=== PATIENT | female | born 1960 | race African-American/Black ===

== ENCOUNTER 2017-02-10 07:41 | Inpatient (IN) ==
[2017-02-10] MEDS ORDERED: SODIUM CHLORIDE 0.9% 1,000 ML IV STA (08:14)
[2017-02-10] MEDS ORDERED: HYDROmorphone 2 MG/1 ML VIAL IV STA (08:15)
[2017-02-10] MEDS ORDERED: ONDANSETRON 4 MG/2 ML VIAL IV STA (08:15)
--- NOTE | 2017-02-10 08:59 | Emergency Department Note ---
Poonam Zhao Hilary, am scribing for, and in the presence of, Ekaterina Pollard DO 08: 18. IAtul Debra, DO, personally performed the services described in this documentation, ascribed by Marlin Levin in my presence, and it is both accurate and complete [id number] . 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 pt states having some dizziness, pt states she cant keep anything down. pt states she is having weight loss and loss of appitite. pt states she has seen a gi doctor and was told she had a stomach infection and she also states she had to have her esophagus stretched. Mode of Arrival: Wheelchair Limitations: No Limitations Source: Patient, RN Notes Reviewed Time Seen by Provider: 02/10/17 08:00 - History of Present Illness HPI Narrative: Pt is a 56 y/o female presenting to the ED with c/o nausea/vomiting and abdominal pain which onset a month ago. Pt states that she hasn't been sleeping or being able to keep anything down. She confirms weight loss, loss of appetite , abdominal pain, nausea and vomiting. She also states that she has had her esophagus stretched but doesn't recall when. No other complaints or problem stated in the ED. Onset (ago): month(s) Consistency: constant Severity: moderate Severity scale (1-10): 3 Quality: aching Allergies/Adverse Reactions: Allergies Allergy/AdvReac Type Severity Reaction Status Date / Time adhesive Allergy Severe BLISTER Verified 02/10/17 07:52 Penicillins Allergy RASH Verified 02/10/17 07:52 Home Medications: Home Medications Medication Instructions Recorded Confirmed Type HYDROcodone/ACETAMIN 7.5-325 1 tablet PO Q6H #14 tablet 02/06/16 Rx [[place] 7.5-325] Review of System - Review of System 12 point system: reviewed and no additional remarkable complaints except as stated - Review of System Constitutional: Present: weight loss, other (loss of appetite). Absent: fever Gastrointestinal: Present: abdominal pain, nausea, vomiting Medical,Surgical,& Family Hx - Medical History Cardio: History of: Hypertension Psychological: History of: Depression Gastrointestinal: History of: GERD - Social History Smoking Status: Never smoker Frequency of Alcohol Use: None Type of Drug Use: None Exam Vital Signs: Vital Signs Temperature 97.4 F L 02/10/17 08:20 Pulse Rate 94 H 02/10/17 08:20 Respiratory Rate 18 02/10/17 08:20 Blood Pressure 103/88 02/10/17 08:20 O2 Sat by Pulse Oximetry 99 02/10/17 07:45 - General General appearance: alert, in no apparent distress, other (weight loss, dark circles under eyes) - Head Head exam: Present: atraumatic, normocephalic - Eye Eye exam: Present: normal appearance, PERRL, EOMI - ENT ENT exam: Present: mucous membranes dry, TM's normal bilaterally. Absent: mucous membranes moist - Neck Neck exam: Present: full ROM, trachea midline. Absent: tenderness - Chest Chest inspection: Present: symmetric chest wall rise. Absent: tenderness - Respiratory Respiratory exam: Present: normal lung sounds bilaterally. Absent: respiratory distress - Cardiovascular Cardiovascular exam: Present: normal rhythm, tachycardia, normal heart sounds. Absent: murmur, rubs, gallop - Abdominal Exam Abdominal exam: Present: soft, tenderness (diffusely), guarding, normal bowel sounds. Absent: distention - Extremities Exam Extremities exam: Present: full ROM. Absent: tenderness - Back Exam Back exam: Present: full ROM. Absent: tenderness - Neurological Exam Neurological exam: Present: alert, oriented X3, CN II-XII intact. Absent: motor sensory deficit - Psychiatric Psychiatric exam: Present: normal affect, normal mood - Skin Skin exam: Present: warm, dry, intact, normal color, other (tenting of skin). Absent: rash Course Course Narrative: spoke with hospitalist, will admit for observation. with dx of collitis. pt is stable at this time/ Results - Labs CBC & BMP: 02/10/17 08:58 02/10/17 08:58 Lab Results: I have reviewed the patients labs Labs: Laboratory Tests 02/10/17 08:58 WBC 9.3 RBC 3.66 L Hgb 13.1 Hct 36.2 MCH 36 H MCHC 36.2 H Plt Count 233 Lymph % (Auto) 20.7 L D[place] # (Auto) 1.0 H Laboratory Tests 02/10/17 02/10/17 08:58 08:58 Sodium 135 L Potassium 2.8 L Chloride 89 L Carbon Dioxide 30 Anion Gap 18.8 H BUN 10 Calculated Osmolality 268.1 L Total Bilirubin 1.20 H Total Protein 7.9 Globulin 4.3 H Albumin/Globulin Ratio 0.8 L Urine pH 5.0 Ur Specific [place] 1.012 Urine Protein 30 Urine Ketones 20 Urine Blood Small Urine Bilirubin Small H Urine Urobilinogen 4.0 H Urine Leukocytes Small H Urine RBC 2 Urine WBC 47 Hyaline Casts 2 Laboratory Tests 02/10/17 08:58 Urine Opiates Screen Negative Ur Barbiturates Screen Negative Ur Phencyclidine Scrn Negative U Amphetamine/Methamph Negative U Benzodiazepines Scrn Negative U Cocaine Metab Screen Negative U Cannabinoids Screen Negative - Diagnostic Findings Procedure: CT Abdomen and Pelvis: report reviewed by me (Fatty infiltration o fthe liver with cardiac fat pads and minimal atelectasis. Diverticulousis of the colon with possible thickening o fthe wall of the right colon which could be related to colitis, inflammatory bowel disease, artifactual finding etc. Limited evaluation of bowel without oral cotrast. Prior hysterectomy. Chronic appearing L4 compression fracture with degenerative changes. )
[2017-02-10] MEDS ORDERED: HYDROmorphone 2 MG/1 ML VIAL ONE (09:07)
[2017-02-10] MEDS ORDERED: ONDANSETRON 4 MG/2 ML VIAL ONE (09:07)
[2017-02-10 09:08] LABS: Basophils % 0.4 % (0.0-0.8); Eosinophils % 0.2 % (0.00-10.9); Hematocrit 36.2 VOL% (35.7-47.0); Hemoglobin 13.1 GM/DL (12.0-16.0); Immature Granulocytes % 0.4 %; Immature Granulocytes Absolute 0.04 #; Lymphocytes # 1.9 10*3/uL (1.4-4.0); Lymphocytes % 20.7 % (21.3-54.2); Mean Corpuscular HGB Conc 36.2 GM/DL (32-36); Mean Corpuscular Hemoglobin 36 PG (27-34); Mean Corpuscular Volume 98.9 FL (87-102); Mean Platelet Volume 11.4 FL (9.6-12.0); Monocytes % 10.4 % (1.7-12.7); Neutrophils # 6.3 10*3/uL (1.4-7.4); Neutrophils % 67.9 % (38.7-73.9); Platelet Count 233 T/CUMM (130-400); Red Blood Count 3.66 MC/CUMM (3.8-5.5); Red Cell Distribution Width 13.4 % (9.3-17.3); White Blood Count 9.3 T/CUMM (4-12)
[2017-02-10 09:13] LABS: Apearance,Urine CLOUDY (Clear); Bacteria,Urine Many /HPF (Few); Blood, Urine Small mg/dL (Negative); Glucose,Urine (UA) Negative (Negative); Hyaline Casts,Urine 2 /LPF (0-3); Ketones,Urine 20 mg/dL (Negative); Mucus,Urine Few /LPF (Occasional); Nitrite,Urine Negative (Negative); Protein,Urine 30 MG/DL; RBC,Urine 2 /HPF (0-4); Squamous Epithelial Cell,Urine Occasional /HPF (0-10); Urine Specific Gravity 1.012 (1.001-1.035); WBC,Urine 47 /HPF (0-6)
[2017-02-10 09:18] LABS: Bilirubin,Urine Small mg/dL (Negative)
[2017-02-10 09:19] LABS: Urine Color Dark Yellow (Yellow)
[2017-02-10 09:37] LABS: Albumin 3.6 G/DL (3.4-5.0); Bilirubin,Total 1.2 MG/DL (0.2-1.0); Osmolality,Calculated 268.1 MOS/KG (273-304); Potassium 2.8 MMOL/L (3.5-5.1); Total Protein 7.9 G/DL (6.4-8.3)
[2017-02-10 09:53] LABS: Barbiturates Screen,Urine Negative (Negative); Benzodiazepines Screen,Urine Negative (Negative); Cannabinoid Screen,Urine Negative (Negative); Opiate Screen,Urine Negative (Negative); Phencyclidine Screen,Urine Negative (Negative)
[2017-02-10] MEDS ORDERED: POTASSIUM CHLORIDE 20 MEQ TABLET PO STA (10:09)
[2017-02-10] MEDS ORDERED: POTASSIUM CHLORIDE 20 MEQ TABLET PO ONE (10:31)
--- NOTE | 2017-02-10 10:58 | CT Report ---
Referring physician: Ekaterina Pollard DO EXAM: CT abdomen and pelvis with contrast DATE: 02/10/2017 COMPARISON: None REASON: Generalized abdominal pain TECHNIQUE: Axial images of the abdomen and pelvis were obtained after administration of 100 cc of Omnipaque 350 IV contrast. Coronal and sagittal reformatted images were also provided. Total DLP is 799.80 mGy*cm. FINDINGS: Minimal atelectasis at the visualized lung bases with cardiac fat pads. Fatty infiltration of the liver with which is normal in size. No masses, dilated ducts, or calcified gallstones. The spleen, pancreas, adrenal glands, and kidneys have an unremarkable appearance. No definite renal or ureteral calculi are identified. The abdominal aorta is normal in size with no adjacent adenopathy. No significant dilatation of the small bowel. Diverticulosis of the colon with possible thickening of the wall of the right colon. Suboptimal evaluation of the bowel including the appendix with no oral contrast given. Prior hysterectomy with unremarkable urinary bladder. Chronic appearing L4 compression fracture with degenerative changes. IMPRESSION: Fatty infiltration of the liver with cardiac fat pads and minimal atelectasis. Diverticulosis of the colon with possible thickening of the wall of the right colon which could be related to colitis, inflammatory bowel disease, artifactual finding, etc. Limited evaluation of bowel without oral contrast. Prior hysterectomy. Chronic appearing L4 compression fracture with degenerative changes. The CT exam was performed using one or more of the following dose reduction techniques: Automated exposure control and adjustment of the mA and/or kV according to patient size. PROCEDURE INTERPRETED AT [facility] DEPARTMENT OF RADIOLOGY Final Report Signed by: Dr. Alexandrea Fisher
[2017-02-10] MEDS ORDERED: LEVOFLOXACIN INJ 750 MG in PREMIX 1 EACH IV STA (11:19)
[2017-02-10] MEDS ORDERED: MAGNESIUM SULF RIDER 4 GM in PREMIX 1 EACH IV PRN (12:06)
[2017-02-10] MEDS ORDERED: MORPHINE 2 MG/1 ML SYRINGE IV PRN (12:06)
--- NOTE | 2017-02-10 12:16 | Hospitalist History & Physical ---
<Sirisha Ogdenda - Last Filed: 02/10/17 12:10> Assessment and Plan (1) Colitis Status: Acute Assessment and plan: We will start empiric antibiotic coverage, promote bowel rest, gently rehydrate , start protein pump inhibitors, and DVT prophylaxis. We will obtain stool specimens for O&P, WBC, and C. difficile. We will consult gastroenterology to evaluate and assist during the clinical encounter. We will provide supportive care. Current Visit: Yes (2) Hypokalemia Status: Acute Assessment and plan: Potassium noted at 2.9 at the time of encounter; I suspect this is largely due to volume depletion secondary to nausea, vomiting, and diarrhea. We will start the electrolyte protocol, correct deficit, and recheck complete metabolic profile in a.m. Current Visit: Yes History of Present Illness Chief complaint: Nausea, vomiting, diarrhea. History of present illness: This is a very pleasant 56-year-old female that presented to the ED at [facility] this morning for the evaluation of nausea, vomiting, diarrhea. Patient has medical history significant for hypertension, depression , gastroesophageal reflux disease, and dysphasia. Patient has surgical history significant for hysterectomy and esophageal dilation. Patient reported the onset of symptoms 1 month prior to presentation. She reports that the above symptoms started gradually and in increased in frequency in recent weeks. She reports that she has had weight loss and a loss of appetite. She states that she has not been able to "keep anything down" and becomes dizzy when she ambulates. 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 Her symptoms became severe this morning she decided to present to the ED for further evaluation. The patient was seen and assessed at the time of ED presentation. The patient was noted to be vomiting during the triage interview. Labs were obtained; complete blood count reported white blood cell count 9.3, hemoglobin 13.1, hematocrit 36.2, and platelet count of 233. Complete metabolic profile reported sodium at 135, potassium at 2.8, chloride 89, carbon dioxide 30, anion gap 18.8, BUN 18, creatinine 0.90, calcium 10.0, total bilirubin 1.20, AST 27, ALT 16, alkaline phosphatase 71, lipase 100. Urinalysis reported a small amount of bilirubin, urobilinogen 4.0, and a small amount of leukocytes. CT abdomen and pelvis reported fatty infiltration of the liver with cardiac fat pads and minimal atelectasis, diverticulosis of the colon with possible thickening of the wall of the right colon which could be related to colitis or inflammatory bowel disease, and chronic appearing L4 compression fracture with degenerative changes. After brief discussion with both Dr. Pollard and Dr. Gonzalez, patient will be admitted to the hospitalist services for continuation of care. Home medications have been reviewed and reconciled. CODE STATUS discussed; patient is a FULL CODE. We will request a gastroenterology consultation to evaluate and assist during the clinical encounter. Home Medications Medication Instructions Recorded Confirmed Type HYDROcodone/ACETAMIN 7.5-325 1 tablet PO Q6H #14 tablet 02/06/16 Rx [[place] 7.5-325] Allergies Allergy/AdvReac Type Severity Reaction Status Date / Time adhesive Allergy Severe BLISTER Verified 02/10/17 07:52 Penicillins Allergy RASH Verified 02/10/17 07:52 Medical,Surgical,& Family Hx - Medical History Cardio: History of: Hypertension Psychological: History of: Depression Gastrointestinal: History of: GERD - Social History Smoking Status: Never smoker Frequency of Alcohol Use: None Type of Drug Use: None 12 point system: reviewed and no additional remarkable complaints except as stated Exam - Constitutional Vitals: Period Temp Pulse Resp BP Sys/Poon Pulse Ox Last 24 Hr 97.4 F-97.4 F 94-94 18-18 103-103/88-88 99 General appearance: normal weight, no acute distress - Head Head exam: Present: normal inspection, normocephalic, atraumatic - Eye Eye exam: Present: EOMI. Absent: conjunctival injection, nystagmus Pupils: Present: ARIANA, normal accommodation - ENT ENT exam: Present: normal exam, normal external ear exam, normal oropharynx - Neck Neck exam: Present: normal inspection. Absent: lymphadenopathy, meningismus, tenderness, thyromegaly - Respiratory Respiratory exam: Present: clear to auscultation bilaterally. Absent: rales, rhonchi, stridor, wheezes - Cardiovascular Cardiovascular exam: Present: regular rate and rhythm, tachycardia. Absent: carotid bruit, diastolic murmur, gallop, JVD, rubs, systolic murmur - GI/Abdominal GI/Abdominal exam: Present: normal bowel sounds, guarding, tenderness (Diffuse tenderness) - Extremities Exam Extremities exam: Present: normal inspection, normal capillary refill, full ROM. Absent: edema - Back Exam Back exam: Present: normal inspection - Neurological Exam Neurological exam: Present: alert, oriented X3, CN II-XII intact - Psychiatric Psychiatric exam: Present: flat affect - Skin Skin exam: Present: normal color, warm, dry Results - Labs CBC & BMP: 02/10/17 08:58 02/10/17 08:58 Lab Results: I have reviewed the past 24 hour labs <Jeffery Gonzalez - Last Filed: 02/10/17 13:34> Assessment and Plan (1) Nausea and vomiting in adult patient Status: Acute Assessment and plan: Impression: 1. Nausea and vomiting. I reviewed her CT. The findings of possible colitis are very soft, and her symptoms are not at all consistent with colitis. I do not think she has this. She may have cyclic vomiting. 2. Hypokalemia, likely due to vomiting. Plan: Replace potassium. She reports that she has seen numerous gastroenterologists. Once her potassium is replaced, we can probably let her go home. This note was completed using S[employer] voice recognition software. 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 Current Visit: Yes History of Present Illness History of present illness: Ms. Marrufo is a 56 year old female The patient reports a history of GI problems for many years. She describes chronic nausea and vomiting. She reports intermittent dysphagia that has been managed with esophageal dilation. She says that she has seen numerous GI doctors, and has multiple upper and lower endoscopies. She said that she has not had any significant findings on the endoscopic evaluations. She denies any history of pancreas disease or gallbladder disease, and also denies any prior surgery on the abdomen. She reports no lower GI complaints to me. She says that she has lost some weight over the past several months, but cannot quantitate it. Her main complaints are persistent nausea and vomiting, with nocturnal symptoms as well. She reports chronic hypertension, but denies any other medical problems, including diabetes, liver disease, heart disease, or lung problems. She denies any illicit drug use. She did not mention that she was seeing a pain specialist, but there are numerous procedure notes in the chart. Interestingly, her drug screen is negative for everything. Exam - Constitutional Vitals: Period Temp Pulse Resp BP Sys/Poon Pulse Ox Last 24 Hr 97.4 F-97.4 F 94-94 18-18 103-103/88-88 99 Vital signs are as described above. She is afebrile. Heart is regular with no murmur or gallop. Her lungs are clear with no rales or wheezes. Abdomen is soft with some mild generalized tenderness all over. She has good bowel sounds. There is no peripheral edema. She is awake and alert. She says that she has dementia, but is able to give a pretty good history. Results - Labs CBC & BMP: 02/10/17 08:58 02/10/17 08:58 - Diagnostic Findings Procedure: CT Abdomen and Pelvis: image reviewed by me (Reviewed with radiology. Very unimpressive for colitis)
[2017-02-10] MEDS ORDERED: metroNIDAZOLE INJ 500 MG in PREMIX 1 EACH IV SCH (12:30)
[2017-02-10] MEDS ORDERED: SODIUM CHLORIDE 0.9% 1,000 ML IV SCH (12:30)
[2017-02-10] MEDS ORDERED: LEVOFLOXACIN INJ 150 ML IV ONE (13:13)
[2017-02-10] MEDS: SODIUM CHLOR 0.9% KCL 20 MEQ 20 MEQ/1,000 ML BAG IV SCH (14:25)
[2017-02-10] MEDS: MAGNESIUM SULF RIDER 2 GM in PREMIX 1 EACH IV PRN (14:26)
[2017-02-10] MEDS: ONDANSETRON 4 MG/2 ML VIAL IV PRN (14:36)
[2017-02-10] MEDS ORDERED: PROMETHAZINE 25 MG/1 ML VIAL IM PRN (17:07)
[2017-02-11] MEDS: SODIUM CHLOR 0.9% KCL 20 MEQ 20 MEQ/1,000 ML BAG IV SCH ×3 (00:18→20:27)
--- NOTE | 2017-02-11 07:00 | Gastrointestinal Consult Note ---
Assessment and Plan (1) Epigastric pain Status: Acute Assessment and plan: This patient has left upper quadrant epigastric tenderness with a bloating component very suspicious for gastroparesis. There may be peptic ulcer disease erosive gastritis possibly erosive esophagitis. Although the patient has a history of stricturing she has been swallowing adequately post dilation by Dr. Osborne approximately 3-4 months ago. She just simply cannot keep anything down. I am not sure if she is on acid blocking medication on a routine basis but she certainly needs to be. We have increased her Protonix IV to twice a day. She really does not have any diarrhea but does have a single episode of melena. CT scan findings are likely an over read. The prior colonoscopy done approximately a year ago not showing any inflammatory bowel disease. She is not having any bilateral lower quadrant tenderness. We will perform upper endoscopy tomorrow with biopsies to look for the Helicobacter pylori again. We may need to get her completely suppressed with this medications before attempting to treat her with amoxicillin clarithromycin as she did not do well with these medications on last attempted treatment. Current Visit: Yes (2) History of esophageal stricture Status: Acute Assessment and plan: Previously dilated approximately 3-4 months ago, the procedure reports are pending. No need to redilate at this time. Agree with increasing Protonix to 40 mg twice daily. Current Visit: Yes (3) History of melena Status: Acute Assessment and plan: The patient appears to be having coffee-ground emesis in addition to a single episode of melena. I suspect she may have had a Marisol-Campbell tear. Upper endoscopy is pending for tomorrow. Current Visit: Yes (4) Hematemesis with nausea Status: Acute Assessment and plan: As mentioned above. Again I suspect a Marisol-Campbell tear. Upper endoscopy was ordered. The patient knows that she has a chance for the following: Bleeding, infection, perforation, cardiac and pulmonary compromise. Current Visit: Yes History of Present Illness Chief complaint: Nausea, coffee-ground emesis, epigastric pain, melena History of present illness: Ms. Marrufo is a 56 year old female who has been followed over the [facility] and was referred to Dr. Yamil Osborne approximately 1 year ago. She has been following up with him for her routine colonoscopy which demonstrated polyp approximately a year ago patient is also had nausea, vomiting and epigastric pain over the last year but has become much more progressive over the last 1 month. She did undergo a previous upper endoscopy during which time she got a dilation approximately 3-4 months ago but has been experiencing worsening bloating and vomiting sometimes with coffee grounds and a single episode of dark stools approximately 1 week ago. She has not been able to keep anything down over the last several days and presented to our emergency room with contraction alkalosis and a potassium of 2.8. During his endoscopy apparently did find some Helicobacter pylori but the patient vomited the medications she was given to treat this and so never was able to keep them down patient has a long list of home medications that apparently not made into the computer she actually has the bag at her bedside. She states that she does not know if she is on NSAIDs at home. There is no family history of colorectal cancer or polyps that she knows of. She did have some incidental thickening of the right colon which I believe is unrelated and probably an overread by the radiologist as this patient has no typical diarrhea. I have discontinued the stool studies. Again this patient's colonoscopy done by Dr. Osborne approximately 1 year ago was normal aside from a polyp. We will try and get old results from his office. Patient also has extreme bloating and early satiety and just a complete lack of being able to keep any food down her stomach. Home Medications Medication Instructions Recorded Confirmed Type Atomoxetine HCl [Strattera] 80 mg PO DAILY 02/11/17 02/11/17 History Diclofenac 1% Gel [Voltaren 1% Gel] 1 applic TOP QID PRN 02/11/17 02/11/17 History Donepezil HCl 10 mg PO BEDTIME 02/11/17 02/11/17 History Duloxetine HCl [Duloxetine] 60 mg PO BID 02/11/17 02/11/17 History Estradiol Tab [Estrace Tab] 2 mg PO DAILY 02/11/17 02/11/17 History Fluticasone 50 Mcg Nasal [place] 2 spray BOTH NARES DAILY PRN 02/11/17 02/11/17 History [Flonase Nasal [place]] Lisinopril 2.5 mg PO DAILY 02/11/17 02/11/17 History Montelukast Sodium 10 mg PO BEDTIME 02/11/17 02/11/17 History [place]-3/Dha/Epa/Fish Oil [Fish Oil 1 each PO DAILY 02/11/17 02/11/17 History 1,000 mg Softgel] Omeprazole 40 mg PO BID 02/11/17 02/11/17 History Pravastatin Sodium 40 mg PO BEDTIME 02/11/17 02/11/17 History Quetiapine Fumarate 400 mg PO BEDTIME 02/11/17 02/11/17 History Allergies Allergy/AdvReac Type Severity Reaction Status Date / Time adhesive Allergy Severe BLISTER Verified 02/10/17 07:52 Penicillins Allergy RASH Verified 02/10/17 07:52 Medical,Surgical,& Family Hx - Medical History Cardio: History of: Hypertension, Cardiovascular Problems (heart murmur) Psychological: History of: Depression Neurology: History of: Dementia HEENT: History of: HEENT Problems (sinus issues) Genitourinary: History of: Kidney Stones Gastrointestinal: History of: GERD Musculoskeletal: History of: Back/Neck Problems (goes to pain clinic Dr. Witt) Hematology: History of: Anemia - Surgical History Reproductive Surgeries: Surgical HX of;: Hysterectomy - Social History Smoking Status: Never smoker Frequency of Alcohol Use: None Type of Drug Use: None Review of systems: Constitutional: Denies fever, but does have some chills, nausea, and vomiting Eyes: Denies dry eyes, and scleral icterus HENT: Occasion headaches Cardiovascular: Denies acute chest pain and claudication Respiratory: Denies shortness of breath, wheezing, and difficulty breathing, denies cough Gastrointestinal: As noted in the HPI Genitourinary: Denies dysuria and hematuria Neurologic: Denies vision loss, and loss of sensation Musculoskeletal: Admits to joint stiffness, and muscular weakness, but no joint swelling Psychiatric: Occasional depression but no ping symptoms Heme-Lymph: Denies easy bruising, lymph node enlargement or tenderness, night sweats, excessive bleeding Allergies-immunologic: Denies pruritus and rhinorrhea Exam - Constitutional Vitals: Period Temp Pulse Resp BP Sys/Poon Pulse Ox Last 24 Hr 97.1 F-99.1 F 70-94 18-20 103-137/75-97 95-100 General appearance: mild distress - Head Head exam: Present: normocephalic - Eye Eye exam: Present: EOMI - Respiratory Respiratory exam: Present: clear to auscultation bilaterally. Absent: rhonchi, stridor, wheezes - Cardiovascular Cardiovascular exam: Present: regular rate and rhythm - GI/Abdominal GI/Abdominal exam: Present: normal bowel sounds, tenderness (This is noted throughout but especially in the epigastric/left upper quadrant regions), soft, other (Good tone in the rectum with anterior posterior tenderness, stools are guaiac positive, moderately). Absent: guarding, rebound - Extremities Exam Extremities exam: Absent: edema - Neurological Exam Neurological exam: Present: alert, oriented X3 - Psychiatric Psychiatric exam: Present: normal affect, normal mood - Skin Skin exam: Present: warm Results - Labs CBC & BMP: 02/10/17 08:58 02/10/17 08:58
[2017-02-11 08:05] LABS: Basophils % 0.4 % (0.0-0.8); Eosinophils # 0.1 10*3/uL (0.0-0.87); Eosinophils % 1.8 % (0.00-10.9); Hematocrit 32.1 VOL% (35.7-47.0); Hemoglobin 11.2 GM/DL (12.0-16.0); Immature Granulocytes % 0.8 %; Immature Granulocytes Absolute 0.06 #; Lymphocytes % 24.6 % (21.3-54.2); Mean Corpuscular HGB Conc 34.9 GM/DL (32-36); Mean Corpuscular Hemoglobin 35 PG (27-34); Mean Corpuscular Volume 100.3 FL (87-102); Mean Platelet Volume 11.7 FL (9.6-12.0); Monocytes # 0.8 10*3/uL (0.11-0.8); Neutrophils % 62.4 % (38.7-73.9); Platelet Count 198 T/CUMM (130-400); Red Cell Distribution Width 13.5 % (9.3-17.3); White Blood Count 7.9 T/CUMM (4-12)
[2017-02-11] MEDS: PANTOPRAZOLE 40 MG VIAL IV SCH ×2 (08:10→20:27)
[2017-02-11] MEDS: PROMETHAZINE INJ 25 MG in SODIUM CHLORIDE 0.9% 50 ML IV SCH ×3 (08:11→20:27)
[2017-02-11 08:47] LABS: Albumin 2.7 G/DL (3.4-5.0); Calcium 8.8 MG/DL (8.5-10.1); Magnesium 2.1 MG/DL (1.8-2.4); Osmolality,Calculated 275.4 MOS/KG (273-304); Potassium 3.6 MMOL/L (3.5-5.1); Total Protein 6.2 G/DL (6.4-8.3)
[2017-02-11] MEDS ORDERED: PANTOPRAZOLE 40 MG VIAL IV SCH (09:00)
[2017-02-11] MEDS: POTASSIUM CHLORIDE RIDER 10 MEQ in PREMIX 1 EACH IV PRN ×2 (11:29→12:31)
[2017-02-11] MEDS ORDERED: CIPROFLOXACIN INJ 400 MG in PREMIX 1 EACH IV SCH (12:00)
--- NOTE | 2017-02-11 19:23 | Hospitalist Progress Note ---
Assessment and Plan (1) Epigastric pain Status: Acute Assessment and plan: Likely from gastroparesis, patient is going for an EGD Current Visit: Yes (2) Hematemesis with nausea Status: Acute Current Visit: Yes (3) History of esophageal stricture Status: Chronic Assessment and plan: This problem is stable continue PPI Current Visit: Yes (4) History of melena Status: Acute Assessment and plan: stable, was likely from Marisol-Campbell tear Current Visit: Yes Hospitalist: Subjective Interval history: Patient had nausea, vomiting and epigastric pain over the last year but has become much more progressive over the last 1 month. She did undergo a previous upper endoscopy during which time she got an esophageal dilation approximately 3 -4 months ago but has been experiencing worsening bloating and vomiting sometimes with coffee grounds and a single episode of dark stools approximately 1 week ago. Patient also has extreme bloating and early satiety and just a complete lack of being able to keep any food down her stomach. Exam - Constitutional Vitals: Period Temp Pulse Resp BP Sys/Poon Pulse Ox Last 24 Hr 97.0 F-99.1 F 60-76 18-20 119-137/75-86 95-99 General appearance: no acute distress - Head Head exam: Present: normal inspection, normocephalic, atraumatic - Eye Eye exam: Present: EOMI Pupils: Present: ARIANA - ENT ENT exam: Present: normal exam - Neck Neck exam: Present: normal inspection - Respiratory Respiratory exam: Present: clear to auscultation bilaterally - Cardiovascular Cardiovascular exam: Present: regular rate and rhythm - GI/Abdominal GI/Abdominal exam: Present: normal bowel sounds - Extremities Exam Extremities exam: Present: normal inspection, normal capillary refill - Neurological Exam Neurological exam: Present: alert, oriented X3 - Psychiatric Psychiatric exam: Present: normal affect, normal mood - Skin Skin exam: Present: normal color, warm, dry Results - Labs CBC & BMP: 02/11/17 07:19 02/11/17 07:19
[2017-02-12] MEDS: PROMETHAZINE INJ 25 MG in SODIUM CHLORIDE 0.9% 50 ML IV SCH ×4 (03:34→20:35)
[2017-02-12] MEDS: SODIUM CHLOR 0.9% KCL 20 MEQ 20 MEQ/1,000 ML BAG IV SCH ×4 (05:37→22:32)
[2017-02-12] MEDS: PANTOPRAZOLE 40 MG VIAL IV SCH ×3 (09:00→20:35)
--- NOTE | 2017-02-12 09:02 | Gastrointestinal Progress Note ---
Assessment and Plan (1) Epigastric pain Status: Acute Assessment and plan: This patient has left upper quadrant epigastric tenderness with a bloating component very suspicious for gastroparesis. There may be peptic ulcer disease erosive gastritis possibly erosive esophagitis. Although the patient has a history of stricturing she has been swallowing adequately post dilation by Dr. Osborne approximately 3-4 months ago. She just simply cannot keep anything down. I am not sure if she is on acid blocking medication on a routine basis but she certainly needs to be. We have increased her Protonix IV to twice a day. She really does not have any diarrhea but does have a single episode of melena. CT scan findings are likely an over read. The prior colonoscopy done approximately a year ago not showing any inflammatory bowel disease. She is not having any bilateral lower quadrant tenderness. We will perform upper endoscopy tomorrow with biopsies to look for the Helicobacter pylori again. We may need to get her completely suppressed with this medications before attempting to treat her with amoxicillin clarithromycin as she did not do well with these medications on last attempted treatment. 02/12/17--patient has minimal changes in her esophagus and stomach. I did not see a great deal of retained fluid in the stomach or food, we will need to check tomorrow to see if a formalize gastric emptying study shows evidence of gastroparesis. Hold off on treatment with motility agents. Biopsies were taken for Helicobacter pylori as well as celiac sprue. Continue Protonix twice daily and observe on clear liquid diet to see how she does with these. This patient was said to have been previously positive for Helicobacter pylori, no gross erosions or ulcerations were noted in the stomach though. Esophageal biopsies were taken for eosinophilic esophagitis as well. Current Visit: Yes (2) History of esophageal stricture Status: Chronic Assessment and plan: Previously dilated approximately 3-4 months ago, the procedure reports are pending. No need to redilate at this time. Agree with increasing Protonix to 40 mg twice daily. 02/12/17--biopsies for eosinophilic esophagitis obtained. Patient did have a lower esophageal ring which might be associated with this type of condition, she is not having dysphagia now. Current Visit: Yes (3) History of melena Status: Acute Assessment and plan: The patient appears to be having coffee-ground emesis in addition to a single episode of melena. I suspect she may have had a Marisol-Campbell tear. Upper endoscopy is pending for tomorrow. 02/12/17--no gross evidence of a cause for melena seen on today's upper endoscopy. Biopsies are pending. There may been a Marisol-Campbell tear that is since healed up completely. This is my suspicion. Current Visit: Yes (4) Hematemesis with nausea Status: Acute Assessment and plan: As mentioned above. Again I suspect a Marisol-Campbell tear. Upper endoscopy was ordered. The patient knows that she has a chance for the following: Bleeding, infection, perforation, cardiac and pulmonary compromise. 02/12/17--No gross evidence of a Marisol-Campbell tear on endoscopy 02/12/17 as mentioned. Biopsies pending. Current Visit: Yes Gastroenterology - PN: Subj Interval history: No diarrhea, the patient still feels terrible. She is still having nausea but is not having any further vomiting. she is not hungry. Exam (Progress Note) - Constitutional Vitals: Period Temp Pulse Resp BP Sys/Poon Pulse Ox Last 24 Hr 97.0 F-98.7 F 60-70 15-20 117-132/62-93 94-100 General appearance: no acute distress - Head Head exam: Present: normocephalic - Eye Eye exam: Present: EOMI - Respiratory Respiratory exam: Present: clear to auscultation bilaterally - Cardiovascular Cardiovascular exam: Present: regular rate and rhythm - GI/Abdominal GI/Abdominal exam: Present: normal bowel sounds, tenderness (Generalized throughout, worse in the epigastric region.), other. Absent: rebound, soft Results - Labs CBC & BMP: 02/11/17 07:19 02/11/17 07:19
--- NOTE | 2017-02-12 09:15 | Operative Note ---
Date of procedure: 02/12/17 Pre-op diagnosis: Nausea, vomiting, poor p.o. intake, mild anemia Post-op diagnosis: other (Patient does have what appears to be some esophagitis in the distal esophagus, biopsies were taken to rule out eosinophilic esophagitis. There is a 2 cm hiatal hernia and small amount of fluid in the stomach as well as mild nonerosive gastritis. I am not sure if these findings completely explain the patient's nausea and vomiting, we will check a patient for gastroparesis tomorrow morning. Clear liquid diet today as tolerated.) Procedure: PROCEDURE: Esophagogastroduodenoscopy (EGD) with cold biopsy for pathology REFERRING PHYSICIAN: Jeffery Gonzalez MD INDICATIONS: This patient with severe nausea, vomiting, epigastric pain, poor p.o. intake, and weight loss the prior H&P was reviewed and interrim changes are as noted: No change from GI consultation done yesterday ENDOSCOPIST: Wilner Dent MD ENDOSCOPE: Olympus Video 100 System upper endoscope ASA CLASS: 3 EXAM: CV: regular rate and rhythm respiratory: Clear without wheezes abdominal: active bowel sounds MEDICATION: Per nursing anesthesia protocol, see their notes PROCEDURE: After discussion of the potential risks and benefits of upper endoscopy, the informed consent was obtained. The patient was then placed in the left lateral decubitus position where sedation was achieved as noted above. Esophageal intubation was performed without difficulty, and the endoscope was advanced through the esophagus, stomach and duodenum. A slow withdrawal was then performed with retroflexion in the stomach for careful inspection of the incisura angularis, fundus and cardia. The scope was then returned to a neutral position and withdrawn through the esophagus. The patient tolerated the procedure well and without complication. BIOPSIES: Gastric antrum/body and duodenum PHOTOGRAPHS: Obtained FINDINGS: Hypopharynx and Larynx: Normal Esohagoscopy Upper and middle thirds: Normal Lower third moderate erythema times last 3 cm, biopsy to rule out eosinophilic esophagitis, there was a lower esophageal ring noted here as well. Esophogastric junctions: No evidence of stricturing, gross esophagitis although erythema was present, no Hauser's. Gastroscopy: Cardia/Fundus: 2 cm hiatal hernia, small amount of retained fluid in the stomach Body: Mild erythema, biopsied Antrum and pylorus mild erythema, biopsied Duodenoscopy: Bulb normal-appearing, biopsied for sprue Second and third portions: Normal-appearing, biopsied for sprue IMPRESSION: Patient does have what appears to be some esophagitis in the distal esophagus, biopsies were taken to rule out eosinophilic esophagitis. There is a 2 cm hiatal hernia and small amount of fluid in the stomach as well as mild nonerosive gastritis. I am not sure if these findings completely explain the patient's nausea and vomiting, we will check a patient for gastroparesis tomorrow morning. Clear liquid diet today as tolerated. RECOMMENDATIONS: Follow up for biopsy results in 1-2 weeks by phone [phone] Continue anti-gastroesophageal reflux measures (avoid carbonated and acidic beverages, avoid eating within 2 hours of bedtime, avoid tight fitting clothing , and elevate the front bed posts 6 inches prior to sleeping. Wilner Dent MD COPY TO: Jeffery Gonzalez MD Anesthesia: MAC Surgeon / Physician: Wilner Dent Estimated blood loss: minimal Specimens: other (Distal esophagus, gastric antrum/body, duodenum to rule out sprue) Condition: stable Disposition: post procedure unit (G.I. Suite) Results - Labs CBC & BMP: 02/11/17 07:19 02/11/17 07:19 Discharge Plan - Discharge Medications No Action Montelukast Sodium 10 mg PO BEDTIME Lisinopril 2.5 mg PO DAILY Pravastatin Sodium 40 mg PO BEDTIME Donepezil HCl 10 mg PO BEDTIME Atomoxetine HCl [Strattera] 80 mg PO DAILY Omeprazole 40 mg PO BID Fluticasone 50 Mcg Nasal [place] [Flonase Nasal [place]] 2 spray BOTH NARES DAILY PRN PRN Reason: Congestion Diclofenac 1% Gel [Voltaren 1% Gel] 1 applic TOP QID PRN PRN Reason: Pain [place]-3/Dha/Epa/Fish Oil [Fish Oil 1,000 mg Softgel] 1 each PO DAILY Quetiapine Fumarate 400 mg PO BEDTIME Estradiol Tab [Estrace Tab] 2 mg PO DAILY Duloxetine HCl [Duloxetine] 60 mg PO BID - Follow Up or Referral - Forms/Instructions
--- NOTE | 2017-02-12 09:36 | Anesthesia Post-Op ---
Anesthesia Post OP - Post Ansesthetic Evaluation Patient seen in post op: Yes Resp: within normal limits CV: within normal limits Mental: within normal limits Temp: within normal limits [id number]: within normal limits Nausea and Vomiting: other Pain: within normal limits (complain of nausea in RR was given zofran 4mg IV,,)
--- NOTE | 2017-02-12 12:52 | Physician Query Form ---
CLICK EDIT DOCUMENT TO SELECT QUERY ANSWER --> OK --> SIGN Aimee Jose RN Clinical [employer] Operator W) [phone] (f) [phone] [email or web address]: Make your selection(s) from the choices in EACH section by typing an "x" and enter comments in the comment section. Please use your independent medical judgment in providing your response. This request does not imply that any particular answer is desired or expected. CLINICAL INDICATORS: (Providers should not edit this section) Based on documentation of "fever tachycardia and systemic inflammatory disorder ". Pt. admitted with UTI. Iraz=541.9, Kjezg=959, WBC=3.5. Pt. treated with IV Merrem. Please clarify which, if any, of the following is the etiology of the above symptoms and treatment rendered: ( ) Sepsis due to a localized infection, please specify infection: ( ) Severe Sepsis (sepsis with acute organ failure) - Please specify type acute organ failure: ( ) Septic Shock (severe sepsis with hypotension) ( ) SIRS of noninfectious origin ( ) Sepsis due to a device, implant or graft, please specify: ( ) Localized infection only, without systemic illness, please specify infection : ( ) Bacteremia (abnormal lab finding only, does not indicate systemic illness) ( ) Other condition, please specify: ( ) Clinically unable to determine Criteria for Sepsis (SIRS due to an infection) should be based on 2 or more of the following being present: Temperature > 101F or < 96.8F WBC > 12,000 or < 4,000, or > 10% bands Tachycardia HR > 90 beats/minute Tachypnea RR > 20 breaths/minute or PaCO2 > 32mmHg Lactate level > 2.0 mmol/L (>4 is equivalent to severe sepsis) Altered Mental Status Mottling of skin or prolonged capillary refill Non-diabetic hyperglycemia (blood sugar >120 mg/dl) Other evidence of acute organ failure associated with sepsis ( severe sepsis) COMMENTS: PLEASE ALSO DOCUMENT RESPONSE IN PROGRESS NOTES AND/OR DISCHARGE SUMMARY Use of terms such as suspected, likely, or probable (associated with a specific diagnosis that is being evaluated, monitored, or treated as if it exists) are acceptable and can be restated in the discharge summary if not ruled out. MTDD
--- NOTE | 2017-02-12 19:20 | Hospitalist Progress Note ---
Assessment and Plan (1) Epigastric pain Status: Acute Assessment and plan: Likely from gastroparesis, patient is going for an EGD Current Visit: Yes (2) Hematemesis with nausea Status: Acute Current Visit: Yes (3) History of esophageal stricture Status: Chronic Assessment and plan: This problem is stable continue PPI Current Visit: Yes (4) History of melena Status: Acute Assessment and plan: stable, was likely from Marisol-Campbell tear Current Visit: Yes Hospitalist: Subjective Interval history: Patient had nausea, vomiting and epigastric pain over the last year but has become much more progressive over the last 1 month. She did undergo a previous upper endoscopy during which time she got an esophageal dilation approximately 3 -4 months ago but has been experiencing worsening bloating and vomiting sometimes with coffee grounds and a single episode of dark stools approximately 1 week ago. Patient also has extreme bloating and early satiety and just a complete lack of being able to keep any food down her stomach. Patient has mild nausea today but no vomiting. She went for an EGD 02/12. Exam - Constitutional Vitals: Period Temp Pulse Resp BP Sys/Poon Pulse Ox Last 24 Hr 97.3 F-98.7 F 64-94 15-23 117-145/62-93 94-100 Exam: General: [No Acute Distress] HEENT: [Normocephalic, atraumatic, Extra ocular movements intact] Neck: [Supple, No JVD] Chest: [Clear to auscultation B/L] CV: [S1 + S2 audible without murmur, gallop or rub] Abd: [soft, NT, Non-distended, BS +] Ext: [No edema] Skin: [No purpura, bruising or rash] Rheumatologic: [No Joint deformities] Neurologic: [Strengtg 5/5 all extremities, no gross sensory deficits] Results - Labs CBC & BMP: 02/11/17 07:19 02/11/17 07:19 - Impressions Assessment and Plan (1) Epigastric pain Status: Acute Assessment and plan: Likely from gastroparesis, patient is going for an EGD Current Visit: Yes (2) Hematemesis with nausea Status: Acute Current Visit: Yes (3) History of esophageal stricture Status: Chronic Assessment and plan: This problem is stable continue PPI Current Visit: Yes (4) History of melena Status: Acute Assessment and plan: stable, was likely from Marisol-Campbell tear Current Visit: Yes (5) Esophagitis Continue Protonix follow-up biopsy
[2017-02-13 02:52] LABS: Calcium 8.5 MG/DL (8.5-10.1); Osmolality,Calculated 276.3 MOS/KG (273-304); Potassium 3.5 MMOL/L (3.5-5.1)
[2017-02-13] MEDS: PROMETHAZINE INJ 25 MG in SODIUM CHLORIDE 0.9% 50 ML IV SCH (03:12)
--- NOTE | 2017-02-13 08:39 | Gastrointestinal Progress Note ---
Assessment and Plan (1) Epigastric pain Status: Acute Assessment and plan: This patient has left upper quadrant epigastric tenderness with a bloating component very suspicious for gastroparesis. There may be peptic ulcer disease erosive gastritis possibly erosive esophagitis. Although the patient has a history of stricturing she has been swallowing adequately post dilation by Dr. Osborne approximately 3-4 months ago. She just simply cannot keep anything down. I am not sure if she is on acid blocking medication on a routine basis but she certainly needs to be. We have increased her Protonix IV to twice a day. She really does not have any diarrhea but does have a single episode of melena. CT scan findings are likely an over read. The prior colonoscopy done approximately a year ago not showing any inflammatory bowel disease. She is not having any bilateral lower quadrant tenderness. We will perform upper endoscopy tomorrow with biopsies to look for the Helicobacter pylori again. We may need to get her completely suppressed with this medications before attempting to treat her with amoxicillin clarithromycin as she did not do well with these medications on last attempted treatment. 02/12/17--patient has minimal changes in her esophagus and stomach. I did not see a great deal of retained fluid in the stomach or food, we will need to check tomorrow to see if a formalize gastric emptying study shows evidence of gastroparesis. Hold off on treatment with motility agents. Biopsies were taken for Helicobacter pylori as well as celiac sprue. Continue Protonix twice daily and observe on clear liquid diet to see how she does with these. This patient was said to have been previously positive for Helicobacter pylori, no gross erosions or ulcerations were noted in the stomach though. Esophageal biopsies were taken for eosinophilic esophagitis as well. 02/13/17--patient's EGD was performed yesterday and did not show a excessive amount of food or fluid in the stomach. We are checking gastric emptying study see if she has objective evidence of gastroparesis. Biopsies of the stomach are pending. The patient is already on twice daily proton pump inhibitors. We continue to observe. Current Visit: Yes (2) History of esophageal stricture Status: Chronic Assessment and plan: Previously dilated approximately 3-4 months ago, the procedure reports are pending. No need to redilate at this time. Agree with increasing Protonix to 40 mg twice daily. 02/12/17--biopsies for eosinophilic esophagitis obtained. Patient did have a lower esophageal ring which might be associated with this type of condition, she is not having dysphagia now. 02/13/17--no difficulty with swallowing. Biopsies pending for eosinophilic esophagitis as mentioned above. Current Visit: Yes (3) History of melena Status: Acute Assessment and plan: The patient appears to be having coffee-ground emesis in addition to a single episode of melena. I suspect she may have had a Marisol-Campbell tear. Upper endoscopy is pending for tomorrow. 02/12/17--no gross evidence of a cause for melena seen on today's upper endoscopy. Biopsies are pending. There may been a Marisol-Campbell tear that is since healed up completely. This is my suspicion. 02/13/17--no cause for melena seen on upper endoscopy. I believe this patient may have had a Marisol-Campbell that is completely healed at this point. Current Visit: Yes (4) Hematemesis with nausea Status: Acute Assessment and plan: As mentioned above. Again I suspect a Marisol-Campbell tear. Upper endoscopy was ordered. The patient knows that she has a chance for the following: Bleeding, infection, perforation, cardiac and pulmonary compromise. 02/12/17--No gross evidence of a Marisol-Campbell tear on endoscopy 02/12/17 as mentioned. Biopsies pending. 02/13/17--As mentioned above. Current Visit: Yes Gastroenterology - PN: Subj Interval history: The patient is having moderate nausea this morning but has not vomited her gastric emptying study substrate (oatmeal), and we are waiting this test to see whether or not she will show clinical signs of gastroparesis. She really does not have severe gastritis or ulcers or erosions in her stomach. She was not redilated. Biopsies of the stomach are pending at this time. Exam (Progress Note) - Constitutional Vitals: Period Temp Pulse Resp BP Sys/Poon Pulse Ox Last 24 Hr 97.3 F-98.8 F 66-94 16-23 122-145/67-93 78-100 General appearance: no acute distress - Head Head exam: Present: normocephalic - Neck Neck exam: Present: normal inspection - Respiratory Respiratory exam: Present: clear to auscultation bilaterally - GI/Abdominal GI/Abdominal exam: Present: normal bowel sounds, tenderness (Moderate epigastric tenderness to deep palpation), soft. Absent: distended, guarding - Extremities Exam Extremities exam: Absent: edema - Neurological Exam Neurological exam: Present: alert, oriented X3 - Psychiatric Psychiatric exam: Present: normal affect, normal mood - Skin Skin exam: Present: warm Results - Labs CBC & BMP: 02/11/17 07:19 02/13/17 01:48
[2017-02-13] MEDS: PANTOPRAZOLE 40 MG VIAL IV SCH ×2 (09:04→20:00)
[2017-02-13] MEDS: ONDANSETRON 4 MG/2 ML VIAL IV PRN ×2 (09:12→14:04)
[2017-02-13] MEDS: POTASSIUM CHLORIDE RIDER 10 MEQ in PREMIX 1 EACH IV PRN ×3 (09:13→14:07)
--- NOTE | 2017-02-13 12:22 | Pathology Report from [facility] ---
[facility] [place] [id number] PATIENT NAME : Nela Marrufo ORDERING DR : Wilner Dent MD CLINICAL HX: N/V, epigastric pain, dysphasia POST-OP DX: Same SPECIMEN INFO: #1 Duodenal BX #2 SPEEDY #3 Distal esophagus BX GROSS DESCRIPTION: #1 DUODENAL consists of a 0.5 x 0.4 cm aggregate of baez tissue. Submitted in cassette #1.#2 SPEEDY consists of a 0.6 x 0.3 cm aggregate of baez tissue. Submitted in cassette #2.#3 DISTAL ESOPHAGUS consists of a 0.4 x 0.2 cm aggregate of baez tissue. Submitted in cassette #3. DIAGNOSIS FOR NELA MARRUFO: #1 DUODENAL BIOPSY: Chronic non-specific duodenitis with normal villous architecture. No evidence of granulomas, parasite , tumor, or celiac disease.#2 SPEEDY BIOPSIES: Chronic gastritis, focally active. H. pylori not seen on H&E or special stain with appropriate control.#3 DISTAL ESOPHAGUS BIOPSY: Fragmented esophageal squamous mucosa with epithelial hyperplasia with a papilloma. COLLECTED DATE: 02/12/2017 [facility] REPORT DATE: 02/13/2017 ELECTRONICALLY SIGNED BY: Nupur Saucedo M.D. 02/13/2017 - 11:54:12 [facility]
--- NOTE | 2017-02-13 13:18 | Nuclear Medicine Report ---
History is nausea vomiting 500 uCi technetium 99m sulfur colloid in the form of oatmeal given p.o. Only a single image obtained at 108 minutes demonstrating and 93% gastric emptying. Linear fit half-time is 58 minutes Impression: Limited study with grossly normal gastric emptying PROCEDURE INTERPRETED AT [facility] DEPARTMENT OF RADIOLOGY Final Report Signed by: Dr. Salud Shanks
[2017-02-13] MEDS: SODIUM CHLOR 0.9% KCL 20 MEQ 20 MEQ/1,000 ML BAG IV SCH ×2 (14:10→23:13)
--- NOTE | 2017-02-13 20:08 | Hospitalist Progress Note ---
Assessment and Plan (1) Epigastric pain Status: Acute Assessment and plan: Likely from gastroparesis, patient is going for an EGD Current Visit: Yes (2) Hematemesis with nausea Status: Acute Current Visit: Yes (3) History of esophageal stricture Status: Chronic Assessment and plan: This problem is stable continue PPI Current Visit: Yes (4) History of melena Status: Acute Assessment and plan: stable, was likely from Marisol-Campbell tear Current Visit: Yes Hospitalist: Subjective Interval history: Patient had nausea, vomiting and epigastric pain over the last year but has become much more progressive over the last 1 month. She did undergo a previous upper endoscopy during which time she got an esophageal dilation approximately 3 -4 months ago but has been experiencing worsening bloating and vomiting sometimes with coffee grounds and a single episode of dark stools approximately 1 week ago. She has nausea, but no vomiting. Exam - Constitutional Vitals: Period Temp Pulse Resp BP Sys/Poon Pulse Ox Last 24 Hr 97.4 F-98.8 F 69-77 18-20 128-143/67-86 78-100 Exam: General: [No Acute Distress] HEENT: [Normocephalic, atraumatic, Extra ocular movements intact] Neck: [Supple, No JVD] Chest: [Clear to auscultation B/L] CV: [S1 + S2 audible without murmur, gallop or rub] Abd: [soft, NT, Non-distended, BS +] Ext: [No edema] Skin: [No purpura, bruising or rash] Rheumatologic: [No Joint deformities] Neurologic: [Strengtg 5/5 all extremities, no gross sensory deficits] Results - Labs CBC & BMP: 02/11/17 07:19 02/13/17 01:48 - Impressions Assessment and Plan (1) Epigastric pain Status: Acute Assessment and plan: L this is better EGD showed some esophagitis and gastric emptying study is unremarkable. Patient is on scheduled Phenergan for her nausea Current Visit: Yes (2) Hematemesis with nausea Status: Acute Current Visit: Yes (3) History of esophageal stricture Status: Chronic Assessment and plan: This problem is stable continue PPI Current Visit: Yes (4) History of melena Status: Acute Assessment and plan: stable, was likely from Marisol-Campbell tear Current Visit: Yes
[2017-02-14] MEDS: ONDANSETRON 4 MG/2 ML VIAL IV PRN ×3 (07:48→20:43)
[2017-02-14] MEDS: SODIUM CHLOR 0.9% KCL 20 MEQ 20 MEQ/1,000 ML BAG IV SCH ×2 (07:49→16:22)
[2017-02-14] MEDS: PANTOPRAZOLE 40 MG VIAL IV SCH ×2 (08:39→20:43)
--- NOTE | 2017-02-14 13:09 | Gastrointestinal Progress Note ---
Assessment and Plan (1) Epigastric pain Status: Acute Assessment and plan: This patient has left upper quadrant epigastric tenderness with a bloating component very suspicious for gastroparesis. There may be peptic ulcer disease erosive gastritis possibly erosive esophagitis. Although the patient has a history of stricturing she has been swallowing adequately post dilation by Dr. Osborne approximately 3-4 months ago. She just simply cannot keep anything down. I am not sure if she is on acid blocking medication on a routine basis but she certainly needs to be. We have increased her Protonix IV to twice a day. She really does not have any diarrhea but does have a single episode of melena. CT scan findings are likely an over read. The prior colonoscopy done approximately a year ago not showing any inflammatory bowel disease. She is not having any bilateral lower quadrant tenderness. We will perform upper endoscopy tomorrow with biopsies to look for the Helicobacter pylori again. We may need to get her completely suppressed with this medications before attempting to treat her with amoxicillin clarithromycin as she did not do well with these medications on last attempted treatment. 02/12/17--patient has minimal changes in her esophagus and stomach. I did not see a great deal of retained fluid in the stomach or food, we will need to check tomorrow to see if a formalize gastric emptying study shows evidence of gastroparesis. Hold off on treatment with motility agents. Biopsies were taken for Helicobacter pylori as well as celiac sprue. Continue Protonix twice daily and observe on clear liquid diet to see how she does with these. This patient was said to have been previously positive for Helicobacter pylori, no gross erosions or ulcerations were noted in the stomach though. Esophageal biopsies were taken for eosinophilic esophagitis as well. 02/13/17--patient's EGD was performed yesterday and did not show a excessive amount of food or fluid in the stomach. We are checking gastric emptying study see if she has objective evidence of gastroparesis. Biopsies of the stomach are pending. The patient is already on twice daily proton pump inhibitors. We continue to observe. 02/14/17--Patient has about 93% gastric emptying at 1 hour, indicating that she does not have objective evidence of gastroparesis. She has not had any diarrhea since arriving and likely does not have the colitis read on the initial CT scan. What she does appear to have is gram negatives growing out of her urine which may be reflective of urinary tract infection that has systemic symptoms with the patient's nausea and vomiting. She really has minimal findings on upper endoscopy and a normal gastric emptying study. I suspect that she may have nausea and vomiting secondary to UTI. I will go ahead and check her CBC levels tomorrow after starting Cipro 500 mg twice daily today. We could possibly even switch her over to Protonix 40 mg twice daily. Will write a diet for the patient that is more solid--unfortunately there is no bland diet available-- we will write for a BRAT diet instead. Current Visit: Yes (2) History of esophageal stricture Status: Chronic Assessment and plan: Previously dilated approximately 3-4 months ago, the procedure reports are pending. No need to redilate at this time. Agree with increasing Protonix to 40 mg twice daily. 02/12/17--biopsies for eosinophilic esophagitis obtained. Patient did have a lower esophageal ring which might be associated with this type of condition, she is not having dysphagia now. 02/13/17--no difficulty with swallowing. Biopsies pending for eosinophilic esophagitis as mentioned above. 02/14/17--no longer an issue, patient is swallowing adequately. Current Visit: Yes (3) History of melena Status: Acute Assessment and plan: The patient appears to be having coffee-ground emesis in addition to a single episode of melena. I suspect she may have had a Marisol-Campbell tear. Upper endoscopy is pending for tomorrow. 02/12/17--no gross evidence of a cause for melena seen on today's upper endoscopy. Biopsies are pending. There may been a Marisol-Campbell tear that is since healed up completely. This is my suspicion. 02/13/17--no cause for melena seen on upper endoscopy. I believe this patient may have had a Marisol-Campbell that is completely healed at this point. 02/14/17--the patient is noted to have a slightly decreased hematocrit down to 32 %. Current Visit: Yes (4) Hematemesis with nausea Status: Acute Assessment and plan: As mentioned above. Again I suspect a Marisol-Campbell tear. Upper endoscopy was ordered. The patient knows that she has a chance for the following: Bleeding, infection, perforation, cardiac and pulmonary compromise. 02/12/17--No gross evidence of a Marisol-Campbell tear on endoscopy 02/12/17 as mentioned. Biopsies pending. 02/13/17--As mentioned above. 02/14/17--No further evidence of hematemesis. Current Visit: Yes Gastroenterology - PN: Subj Interval history: Nela is able to eat a little bit of her clear liquid diet. She states that she is hungry enough to try to advance to a more bland diet with solids and see if she can tolerate this as well. Her pain is really diffuse and unchanged, but she states that with the Protonix her nausea is down to about a 6 out of 10 in intensity from an original 8 out of 10. She is not having any diarrhea and is going to be difficult to get stool from this patient, part of the reason I did not believe that she had a colitis. Exam (Progress Note) - Constitutional Vitals: Period Temp Pulse Resp BP Sys/Poon Pulse Ox Last 24 Hr 97.0 F-98.4 F 69-85 18-20 112-139/70-97 93-100 - Eye Eye exam: Present: EOMI - Respiratory Respiratory exam: Present: clear to auscultation bilaterally. Absent: rhonchi, stridor, wheezes - Cardiovascular Cardiovascular exam: Present: regular rate and rhythm - GI/Abdominal GI/Abdominal exam: Present: normal bowel sounds, tenderness (Diffusely throughout the abdomen even to moderate palpation), soft. Absent: distended, guarding - Back Exam Back exam: Present: normal inspection - Neurological Exam Neurological exam: Present: alert, oriented X3 - Psychiatric Psychiatric exam: Present: depressed - Skin Skin exam: Present: warm Results - Labs CBC & BMP: 02/11/17 07:19 02/13/17 01:48
[2017-02-14] MEDS: CIPROFLOXACIN INJ 400 MG in PREMIX 1 EACH IV SCH (13:20)
--- NOTE | 2017-02-14 14:50 | Hospitalist Progress Note ---
Assessment and Plan (1) Peritonitis Status: Acute Assessment and plan: Patient has rebound tenderness and diffuse abdominal discomfort. This looks sounds like mesenteritis. An infective colitis is a possibility. This turns out to be Campylobacter treatment of choice will be azithromycin Current Visit: Yes (2) Colitis Status: Acute Assessment and plan: Continue antibiotics Current Visit: Yes (3) Nausea and vomiting in adult patient Status: Acute Current Visit: Yes Hospitalist: Subjective Interval history: Patient has been seen interviewed and examined and chart has been reviewed; admitted to the hospital for nausea vomiting abdominal pain or cramps she is also lost weight. The diarrhea is lately but still of chronic caliber. The abdominal pain has been there for a long time she says. She has had some fever. Exam - Constitutional Vitals: Period Temp Pulse Resp BP Sys/Poon Pulse Ox Last 24 Hr 97.0 F-98.4 F 69-85 18-20 112-139/70-97 93-100 General appearance: normal weight, no acute distress - Head Head exam: Present: normocephalic - Eye Eye exam: Present: EOMI, other (Anicteric sclera no conjunctival petechia) Pupils: Present: ARIANA - ENT ENT exam: Present: normal exam - Neck Neck exam: Present: normal inspection - Respiratory Respiratory exam: Present: clear to auscultation bilaterally - Cardiovascular Cardiovascular exam: Present: regular rate and rhythm - GI/Abdominal GI/Abdominal exam: Present: other (She is tender all over her abdomen and does have rebound tenderness. I do not feel any masses. This was diarrhea and abdominal CT scan suggestive of mesenteritis one would worry about Campylobacter ) - Extremities Exam Extremities exam: Present: full ROM - Neurological Exam Neurological exam: Present: alert, oriented X3, CN II-XII intact, other (Seems to be tangential in her answers however) - Psychiatric Psychiatric exam: Present: normal affect, normal mood - Skin Skin exam: Present: normal color, warm, dry Results - Labs CBC & BMP: 02/11/17 07:19 02/13/17 01:48 Lab Results: I have reviewed the past 24 hour labs (Obtain stool cultures and Campylobacter antigen assessment)
[2017-02-15] MEDS: SODIUM CHLOR 0.9% KCL 20 MEQ 20 MEQ/1,000 ML BAG IV SCH ×3 (00:26→19:39)
[2017-02-15] MEDS: CIPROFLOXACIN INJ 400 MG in PREMIX 1 EACH IV SCH (03:06)
[2017-02-15 04:47] LABS: Basophils % 0.4 % (0.0-0.8); Eosinophils # 0.1 10*3/uL (0.0-0.87); Eosinophils % 1.9 % (0.00-10.9); Hematocrit 28.5 VOL% (35.7-47.0); Hemoglobin 10.1 GM/DL (12.0-16.0); Immature Granulocytes % 0.6 %; Immature Granulocytes Absolute 0.03 #; Lymphocytes # 1.9 10*3/uL (1.4-4.0); Lymphocytes % 36.8 % (21.3-54.2); Mean Corpuscular HGB Conc 35.4 GM/DL (32-36); Mean Corpuscular Hemoglobin 35 PG (27-34); Mean Corpuscular Volume 99.7 FL (87-102); Mean Platelet Volume 11.2 FL (9.6-12.0); Monocytes # 0.6 10*3/uL (0.11-0.8); Monocytes % 12.3 % (1.7-12.7); Neutrophils # 2.5 10*3/uL (1.4-7.4); Platelet Count 174 T/CUMM (130-400); Red Blood Count 2.86 MC/CUMM (3.8-5.5); Red Cell Distribution Width 14.2 % (9.3-17.3); White Blood Count 5.2 T/CUMM (4-12)
--- NOTE | 2017-02-15 09:21 | Gastrointestinal Progress Note ---
Assessment and Plan (1) Epigastric pain Status: Acute Assessment and plan: This patient has left upper quadrant epigastric tenderness with a bloating component very suspicious for gastroparesis. There may be peptic ulcer disease erosive gastritis possibly erosive esophagitis. Although the patient has a history of stricturing she has been swallowing adequately post dilation by Dr. Osborne approximately 3-4 months ago. She just simply cannot keep anything down. I am not sure if she is on acid blocking medication on a routine basis but she certainly needs to be. We have increased her Protonix IV to twice a day. She really does not have any diarrhea but does have a single episode of melena. CT scan findings are likely an over read. The prior colonoscopy done approximately a year ago not showing any inflammatory bowel disease. She is not having any bilateral lower quadrant tenderness. We will perform upper endoscopy tomorrow with biopsies to look for the Helicobacter pylori again. We may need to get her completely suppressed with this medications before attempting to treat her with amoxicillin clarithromycin as she did not do well with these medications on last attempted treatment. 02/12/17--patient has minimal changes in her esophagus and stomach. I did not see a great deal of retained fluid in the stomach or food, we will need to check tomorrow to see if a formalize gastric emptying study shows evidence of gastroparesis. Hold off on treatment with motility agents. Biopsies were taken for Helicobacter pylori as well as celiac sprue. Continue Protonix twice daily and observe on clear liquid diet to see how she does with these. This patient was said to have been previously positive for Helicobacter pylori, no gross erosions or ulcerations were noted in the stomach though. Esophageal biopsies were taken for eosinophilic esophagitis as well. 02/13/17--patient's EGD was performed yesterday and did not show a excessive amount of food or fluid in the stomach. We are checking gastric emptying study see if she has objective evidence of gastroparesis. Biopsies of the stomach are pending. The patient is already on twice daily proton pump inhibitors. We continue to observe. 02/14/17--Patient has about 93% gastric emptying at 1 hour, indicating that she does not have objective evidence of gastroparesis. She has not had any diarrhea since arriving and likely does not have the colitis read on the initial CT scan. What she does appear to have is gram negatives growing out of her urine which may be reflective of urinary tract infection that has systemic symptoms with the patient's nausea and vomiting. She really has minimal findings on upper endoscopy and a normal gastric emptying study. I suspect that she may have nausea and vomiting secondary to UTI. I will go ahead and check her CBC levels tomorrow after starting Cipro 500 mg twice daily today. We could possibly even switch her over to Protonix 40 mg twice daily. Will write a diet for the patient that is more solid--unfortunately there is no bland diet available-- we will write for a BRAT diet instead. 02/15/17--biopsies have come back showing no Helicobacter pylori and the mild chronic duodenitis and gastritis noted in the duodenum/stomach. She appears actually no better after taking the Cipro although her white count has improved slightly. On evaluation of the urine culture the patient does have E. coli that appears resistant to Cipro as well as Septra. Will try the patient on some ceftriaxone as it appears to be sensitive to this. She does have a penicillin allergy but this was not shortness of breath but rather a rash many years ago. Ceftriaxone will have ~15% cross reactivity. She is not tolerating the bland diet and we will back this back to clear liquids. Given the diffuse nature of her pain will check the patient for partial bowel obstruction with a small bowel follow-through tomorrow. N.p.o. after midnight for this in the morning. Current Visit: Yes (2) History of esophageal stricture Status: Chronic Assessment and plan: Previously dilated approximately 3-4 months ago, the procedure reports are pending. No need to redilate at this time. Agree with increasing Protonix to 40 mg twice daily. 02/12/17--biopsies for eosinophilic esophagitis obtained. Patient did have a lower esophageal ring which might be associated with this type of condition, she is not having dysphagia now. 02/13/17--no difficulty with swallowing. Biopsies pending for eosinophilic esophagitis as mentioned above. 02/14/17--no longer an issue, patient is swallowing adequately. 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 Reassurance. Current Visit: Yes (3) History of melena Status: Acute Assessment and plan: The patient appears to be having coffee-ground emesis in addition to a single episode of melena. I suspect she may have had a Marisol-Campbell tear. Upper endoscopy is pending for tomorrow. 02/12/17--no gross evidence of a cause for melena seen on today's upper endoscopy. Biopsies are pending. There may been a Marisol-Campbell tear that is since healed up completely. This is my suspicion. 02/13/17--no cause for melena seen on upper endoscopy. I believe this patient may have had a Marisol-Campbell that is completely healed at this point. 02/14/17--the patient is noted to have a slightly decreased hematocrit down to 32 %. 02/15/17--patient does not have any gross evidence of GI bleeding however the hematocrit is dropped from 36% to 28% now, continue to watch. I do not think that should be able to tolerate a bowel prep even if we want to do a colonoscopy in the near future. She has not yet produced any stool for culture evaluation, we did explain to her again how important it was to obtain this. Current Visit: Yes (4) Hematemesis with nausea Status: Acute Assessment and plan: As mentioned above. Again I suspect a Marisol-Campbell tear. Upper endoscopy was ordered. The patient knows that she has a chance for the following: Bleeding, infection, perforation, cardiac and pulmonary compromise. 02/12/17--No gross evidence of a Marisol-Campbell tear on endoscopy 02/12/17 as mentioned. Biopsies pending. 02/13/17--As mentioned above. 02/14/17--No further evidence of hematemesis. 02/15/17--no further evidence of hematemesis. Current Visit: Yes Gastroenterology - PN: Subj Interval history: This patient continues to have ongoing nausea and vomiting as well as bloating and abdominal pain. The gastric emptying study ordered previously was negative for any evidence of gastroparesis in fact a large amount of her stomach empties in an appropriate time. She continues to thwart attempts to obtain a stool specimen though she is talking about going to the bathroom 5 times per day now ( although when asked about this the story changes frequently). I have explained to her how important it is to try and get stool studies but she states that she cannot separate her urine and her stool appropriately to keep cross- contamination down. The urine is growing out Escherichia coli which unfortunately is resistant to Cipro and Septra. It does appear to be sensitive to ceftriaxone and Ancef. The patient is said to be penicillin allergic but this happened many years ago and resulted in some hives and no shortness of breath. Even though we have a 15% cross reactivity with ceftriaxone I think this is a reasonable choice to see if we can treat a urinary tract infection. She would like to go back on clear liquids and she seemed to tolerate these better than the bland diet. Exam (Progress Note) - Constitutional Vitals: Period Temp Pulse Resp BP Sys/Poon Pulse Ox Last 24 Hr 97.2 F-98.5 F 75-87 18-20 112-151/68-96 94-98 General appearance: no acute distress - Head Head exam: Present: normocephalic - Eye Eye exam: Present: EOMI - Respiratory Respiratory exam: Present: clear to auscultation bilaterally. Absent: rhonchi, stridor, wheezes - Cardiovascular Cardiovascular exam: Present: regular rate and rhythm - GI/Abdominal GI/Abdominal exam: Present: normal bowel sounds, distended, tenderness (Mild/ diffuse), soft. Absent: guarding, rebound - Neurological Exam Neurological exam: Present: alert, oriented X3, CN II-XII intact - Psychiatric Psychiatric exam: Present: depressed, flat affect - Skin Skin exam: Present: warm Results - Labs CBC & BMP: 02/15/17 03:58 02/13/17 01:48
[2017-02-15] MEDS ORDERED: cefTRIAXone 2,000 MG in SODIUM CHLORIDE 0.9% 100 ML IV SCH (09:30)
[2017-02-15] MEDS ORDERED: ACETAMINOPHEN 325 MG TABLET PO PRN (09:31)
[2017-02-15] MEDS: ONDANSETRON 4 MG/2 ML VIAL IV PRN ×3 (09:37→20:44)
[2017-02-15] MEDS: PANTOPRAZOLE 40 MG VIAL IV SCH ×2 (09:38→20:44)
[2017-02-15] MEDS: AZTREONAM 1,000 MG in SODIUM CHLORIDE 0.9% 100 ML IV SCH ×2 (10:43→17:00)
--- NOTE | 2017-02-15 14:10 | Hospitalist Progress Note ---
Assessment and Plan (1) Peritonitis Status: Acute Assessment and plan: Patient has rebound tenderness and diffuse abdominal discomfort. This looks sounds like mesenteritis. An infective colitis is a possibility. This turns out to be Campylobacter treatment of choice will be azithromycin Current Visit: Yes (2) Colitis Status: Acute Assessment and plan: Continue antibiotics and metronidazole 500 mg p.o. every 8 Current Visit: Yes (3) Nausea and vomiting in adult patient Status: Acute Current Visit: Yes (4) UTI (urinary tract infection) Status: Acute Assessment and plan: Repeat UA in the morning. In the meantime switch patient to aztreonam during that the organism was resistant to oral antral gram-negative treatments and she has a penicillin allergy which she is adamant was bothered by it was a long time ago and she cannot explain to me what it was. Patient has a very deliberate demeanor. Recent extension does look withdrawn and quite unhappy. Current Visit: Yes Hospitalist: Subjective Interval history: Patient has been seen interviewed and examined and chart has been reviewed. She is still complaining of abdominal pain she has not had a bowel movement yet. I am interested in assisting the stool for possibility of Campylobacter. Upper GI evaluation revealed only some esophagitis in the distal esophagus biopsies were obtained from this area and are negative for H. pylori.. Findings could not explain the patient's persistent nausea and vomiting. Exam - Constitutional Vitals: Period Temp Pulse Resp BP Sys/Poon Pulse Ox Last 24 Hr 97.2 F-98.5 F 75-87 18-20 112-151/68-96 94-98 General appearance: normal weight, no acute distress - Head Head exam: Present: normocephalic, atraumatic - Eye Eye exam: Present: EOMI Pupils: Present: ARIANA - ENT ENT exam: Present: normal oropharynx - Respiratory Respiratory exam: Present: clear to auscultation bilaterally - Cardiovascular Cardiovascular exam: Present: regular rate and rhythm - GI/Abdominal GI/Abdominal exam: Present: normal bowel sounds, other (Diffuse tenderness does not want me to touch her abdomen) - Extremities Exam Extremities exam: Present: full ROM - Neurological Exam Neurological exam: Present: alert, oriented X3, CN II-XII intact, other - Psychiatric Psychiatric exam: Present: other (Withdrawal mood) - Skin Skin exam: Present: normal color, warm, dry Results - Labs CBC & BMP: 02/15/17 03:58 02/13/17 01:48 Lab Results: I have reviewed the past 24 hour labs
[2017-02-15] MEDS: metroNIDAZOLE 500 MG TABLET PO SCH ×2 (14:36→20:44)
[2017-02-16] MEDS: AZTREONAM 1,000 MG in SODIUM CHLORIDE 0.9% 100 ML IV SCH ×3 (01:22→17:35)
[2017-02-16] MEDS: SODIUM CHLOR 0.9% KCL 20 MEQ 20 MEQ/1,000 ML BAG IV SCH ×4 (04:45→21:15)
--- NOTE | 2017-02-16 11:24 | Hospitalist Progress Note ---
Assessment and Plan (1) Peritonitis Status: Acute Assessment and plan: Patient has rebound tenderness and diffuse abdominal discomfort. This looks sounds like mesenteritis. An infective colitis is a possibility. This turns out to be Campylobacter treatment of choice will be azithromycin Current Visit: Yes (2) Colitis Status: Acute Assessment and plan: Continue antibiotics and metronidazole 500 mg p.o. every 8 Current Visit: Yes (3) Nausea and vomiting in adult patient Status: Acute Current Visit: Yes (4) UTI (urinary tract infection) Status: Acute Assessment and plan: Repeat UA in the morning. In the meantime switch patient to aztreonam during that the organism was resistant to oral antral gram-negative treatments and she has a penicillin allergy which she is adamant was bothered by it was a long time ago and she cannot explain to me what it was. Patient has a very deliberate demeanor. Recent extension does look withdrawn and quite unhappy. Current Visit: Yes (5) Nystagmus Status: Acute Assessment and plan: And has unprovoked rhythmical eye movement with oscillatory pattern no other neurologic finding other than complaint of leg weakness denies a history of multiple sclerosis. Patient will be consulted to neurology. In the preceding days the only thing that I had not noticed was that the patient had quite tangential amount of giving answers. Do not notice any motor defect. Current Visit: Yes Hospitalist: Subjective Interval history: Patient has been seen interviewed and examined and chart has been reviewed. She is still complaining of abdominal pain she has not had a bowel movement yet. I am interested in assisting the stool for possibility of Campylobacter. Upper GI evaluation revealed only some esophagitis in the distal esophagus biopsies were obtained from this area and are negative for H. pylori.. Findings could not explain the patient's persistent nausea and vomiting. Today the patient is for upper GI small bowel follow-through Exam - Constitutional Vitals: Period Temp Pulse Resp BP Sys/Poon Pulse Ox Last 24 Hr 96.9 F-98.5 F 78-90 18-20 113-143/72-99 97-100 General appearance: normal weight - Head Head exam: Present: normocephalic, atraumatic - Eye Eye exam: Present: EOMI, nystagmus, other (Oscillatory nystagmus) Pupils: Present: ARIANA - Respiratory Respiratory exam: Present: clear to auscultation bilaterally - Cardiovascular Cardiovascular exam: Present: regular rate and rhythm - GI/Abdominal GI/Abdominal exam: Present: normal bowel sounds, soft, other (Abdominal discomfort) - Extremities Exam Extremities exam: Present: full ROM - Neurological Exam Neurological exam: Present: alert, oriented X3, CN II-XII intact Results - Labs CBC & BMP: 02/15/17 03:58 02/13/17 01:48 Lab Results: I have reviewed the past 24 hour labs
[2017-02-16] MEDS: metroNIDAZOLE 500 MG TABLET PO SCH ×3 (12:00→21:27)
--- NOTE | 2017-02-16 13:53 | Fluoroscopy Report ---
Small bowel follow-through Indication: Dental pain and bloating Findings: Multiple images were obtained after ingestion of barium. There is normal passage of contrast through the bowel without significant delay. Caliber appears within normal limits. No abnormal filling defects are identified. Mucosal pattern appears within normal limits. Impression: No evidence of abnormality demonstrated. PROCEDURE INTERPRETED AT [facility] DEPARTMENT OF RADIOLOGY Final Report Signed by: Dr. Fahad Banks
--- NOTE | 2017-02-16 16:18 | Gastrointestinal Progress Note ---
Assessment and Plan - Time spent with patient Time spent with patient: Greater than 30 minutes (1) Abnormal eye movements Status: Acute Current Visit: Yes (2) Gastritis and duodenitis Status: Acute Current Visit: Yes (3) Anemia Status: Acute Current Visit: Yes (4) Weight loss, non-intentional Status: Acute Current Visit: Yes (5) Nausea and vomiting in adult patient Status: Acute Assessment and plan: PLEASE NOTE -- automatic citation of patient information is unavoidable in this electronic note. I have made a reasonable effort to review the information cited , but it is not a part of my evaluation, impression, or recommendation unless specifically discussed in the dictated text that follows. As well, voice recognition software was used in the creation of this clinical note. Reasonable effort was made to identify and correct gross errors. Despite proofreading, errors in medical front desk specialist may be present, including nonsense verbiage at times. If you encounter such an error, please contact me at [phone] for discussion and correction. -- Lauren Chief complaint: Initial admission for 1 month of gradual worsening of nausea vomiting and diarrhea, associated with weight loss and loss of appetite. Discovered to have E. coli UTI with severe abdominal pain, nausea and vomiting 24 hour events: Patient patient taken to x-ray for small bowel follow-through this morning Subjective: Ms. Nela Marrufo states that she feels marginally better today, but that worsening of abdominal pain came after recurrent emesis earlier this am, and still has pain diffusely. Upon further review, she states she has had new onset dizziness for 3-6 months, followed y nausea/emesis, and then abdominal pain. She wears glasses, but has never been told she has abnormal eye movements , which I am seeing today. Her mental status also seems depressed, with difficulty recalling details from today and the last few months, which Dr. Dennis concurs. Famhx; states had an aunt and uncle with stomach cancer, she believes, no colon cancer, no autoimmue or IBD States she uses aleve regularly at home, in addition to her prescribed tramadol. Medications: Personally reviewed. Flagyl 500 mg 3 times daily, started February 15, 2017 Aztreonam 1000 mg IV every 8 hours, started February 15, 2017 Protonix 40 mg IV twice daily Not currently getting home medications previously reported, last taken unknown, quetiapine, donepezil, and others REVIEW OF SYSTEMS: Complete other review of systems negative except as noted in the HPI PHYSICAL EXAMINATION: CONSTITUTIONAL: Vital signs reviewed as documented above. In no acute distress. Nontoxic-appearing, but abnormal mentation EYES: Anicteric conjunctiva. Extra-ocular movements are asymmetric, disconjugate , unable to track to periphery, worsens symptoms of nausea with neuro eye exam. Shaking of eyes during certain movements. EARS: Able to hear speech at conversational volume level, no external trauma/ masses. MOUTH: No oral/mouth lesions or ulcers. NECK: No masses or crepitus. Thyroid is of normal size and symmetric. HEART: Regular rate, regular rhythm LUNGS: No increased work of breathing or accessory muscle use. GI/ABDOMEN: obese abdomen, soft, Diffusely tender to mild palpation in all areas, nondistended, no rigidity. No palpable mass. No appreciable hepatosplenomegaly, but limited exam due to pain. SKIN: No rash on face, arms, or hands. No palpable lesions MUSCULOSKELETAL: Normal gait. Muscle tone appears normal without any abnormal movements-except eyes. PSYCH: Normal affect. Alert and oriented to person, place, and time. Neuro: with suppressed mental status, memory problems , slowed speech and response to questions. Eye exam abnormal-see above. Laboratory: Personally reviewed Urine with E. coli, stool culture with gram-negative rods, stool negative for C. difficile. CBC with multiple line decrease including WBC now 5.2, hemoglobin 10.1, MCV 99.7 , platelets 174. Overall improvement electrolytes, slightly high chloride at 109, BUN of 1, creatinine 0.6 Liver associated enzymes are within normal limits, low total protein and albumin , lipase 100 Toxicology was negative Radiology: Personally reviewed reports and images with no pertinent changes unless noted here: Upper GI and small bowel x-ray and follow through done today, images personally reviewed. No gross masses seen. Will wait for formal radiology report. Final radiology report reviewed: Findings: Multiple images were obtained after ingestion of barium. There is normal passage of contrast through the bowel without significant delay. Caliber appears within normal limits. No abnormal filling defects are identified. Mucosal pattern appears within normal limits. Impression: No evidence of abnormality demonstrated. Prior EGD without peptic ulcer disease, negative for H pylori, but mild chronic duodenitis and gastritis in the duodenum and stomach. Gastric emptying study normal with 90% gastric emptying at [address] on admission with possible thickening of the wall of the right colon versus under-distension, without oral contrast, as well as chronic L4 compression fracture with degenerative changes, diverticulosis of the colon. Impressions: #Nausea and vomiting with abdominal pain. Clarified today that patient timeline started with 3-5 months of progressive dizziness, then nausea/vomiting , then abdominal pain, and notes abdominal pain is worsen today immediately after emesis with some MSK component defined. Symptoms may be related to UTI with sepsis, versus small bowel obstruction, versus stomach and small bowel Crohn's disease as evidenced by mild chronic duodenitis and gastritis on EGD, as well as single episode of melena reported. Findings in the right colon on initial CT scan on intake without oral contrast are nonspecific, do not correlate with the location of patient's pain, and colonoscopy 1 year ago without inflammation in this territory noted by primary lens mounter. Infectious gastroenteritis, is also a possibility, but there was a lack of mucosal enhancement on small bowel follow-through. No evidence of gastroparesis. HOWEVER, greatest note on physical exam today was assymetric gaze, inability to track my finger during neuro eye exam, disconjugate gaze, and worsening of dizziness and nausea with maneuver. #Weight loss and loss of appetite #Anemia, borderline macrocytic/normocytic #Chronic gastritis without H. pylori. If B12, folate, or iron deficiency is detected, would recommend antiparietal cell antibody and anti-intrinsic factor antibody to assess for autoimmune gastritis as the cause of this. 2. Other specified counseling -- Patient seen for greater than 30 minutes, with direct doctor communication with Dr. Dennis. Greater than 50% of this time was spent counseling regarding differential diagnosis, likely diagnosis, diagnostic and therapeutic options, risks, benefits, and alternatives to procedures and medications, informed consent, and plan of care generally. Patient has expressed understanding and wishes to proceed. Recommendations: - Consider head imaging with CT to start or more definitive MRI, spoke to Dr. Dennis directly who stated he has already ordered a neurology consult for findings and concern of the same -consider if non-confirmed, but documented, home psychiatric medications need to be restarted - Recommend to obtain blood cultures - evaluate for DIC in the setting of dropping hemoglobin and platelets, although three cell line drop could be dilutional -- vitamin B12 and folate, iron panel and ferritin fasting, to evaluate for nutritional deficiencies that are common in chronic small bowel inflammation, as well as borderline macrocytic/possibly mixed normocytic anemia -additional nutritional deficiencies can be assessed: Vitamin A, E, D, K, zinc, copper (can use spot values for the latter two in this case, or 24 hour urine is most definitive), B1 (thiamine), and B6 (pyridoxine) -ensure blood cultures have been drawn to assess for bacteremia -stop all NSAIDs, patient taking aleve at home which could be the cause of chronic gastritis and duodenitis -continue PPI, can transition to oral BID as soon as tolerating diet, as must be taken on an empty stomach and eat 30-60 min later -I recommend vitamin D 2000 units daily and calcium 800-1200 mg daily while you are on a long-term PPI medication to ensure you are getting adequate intake to help protect against bone loss. -Consider outpatient GI follow-up for repeat EGD in 8-12 weeks to see if duodenitis and gastritis have healed or if further small bowel evaluation is warranted. -Primary team to address L4 compression fracture incidentally noted on CT scan, especially as nerve impingement in this territory can effect abdominal pain symptoms. Current Visit: Yes Exam (Progress Note) - Constitutional Vitals: Period Temp Pulse Resp BP Sys/Poon Pulse Ox Last 24 Hr 97.6 F-98.5 F 78-90 18-20 119-143/76-99 97-99 Results - Labs CBC & BMP: 02/15/17 03:58 02/13/17 01:48
[2017-02-16] MEDS: PANTOPRAZOLE 40 MG VIAL IV SCH ×2 (16:47→21:23)
[2017-02-16] MEDS ORDERED: LORazepam 2 MG/1 ML VIAL IV PRN (16:48)
[2017-02-16] MEDS ORDERED: LORazepam 2 MG/1 ML VIAL ONE (17:33)
[2017-02-16] MEDS: ONDANSETRON 4 MG/2 ML VIAL IV PRN (21:20)
[2017-02-17] MEDS: AZTREONAM 1,000 MG in SODIUM CHLORIDE 0.9% 100 ML IV SCH ×3 (01:40→18:32)
[2017-02-17] MEDS: SODIUM CHLOR 0.9% KCL 20 MEQ 20 MEQ/1,000 ML BAG IV SCH ×4 (02:54→21:08)
[2017-02-17] MEDS: metroNIDAZOLE 500 MG TABLET PO SCH ×3 (09:54→21:08)
[2017-02-17] MEDS: PANTOPRAZOLE 40 MG VIAL IV SCH ×2 (09:55→21:08)
[2017-02-17] MEDS: ONDANSETRON 4 MG/2 ML VIAL IV PRN (09:59)
--- NOTE | 2017-02-17 11:12 | Hospitalist Progress Note ---
Assessment and Plan (1) Peritonitis Status: Acute Assessment and plan: Patient has rebound tenderness and diffuse abdominal discomfort. This looks sounds like mesenteritis. An infective colitis is a possibility. This turns out to be Campylobacter treatment of choice will be azithromycin Stool cultures have isolated gram-negative rods pending identification. Because of this at this point is not clear. Current Visit: Yes (2) Colitis Status: Acute Assessment and plan: Continue antibiotics and metronidazole 500 mg p.o. every 8 Current Visit: Yes (3) Nausea and vomiting in adult patient Status: Acute Current Visit: Yes (4) UTI (urinary tract infection) Status: Acute Assessment and plan: Repeat UA in the morning. Current Visit: Yes (5) Nystagmus Status: Acute Assessment and plan: And has unprovoked rhythmical eye movement with oscillatory pattern no other neurologic finding other than complaint of leg weakness denies a history of multiple sclerosis. Patient will be consulted to neurology. In the preceding days the only thing that I had not noticed was that the patient had quite tangential amount of giving answers. Do not notice any motor defect. Length yesterday from the nurse in charge on the floor that the family member reports that the patient actually does use alcohol overload at home and at times she has had these neurologic and behavioral changes that proceed withdrawal symptoms. I asked the patient today and she did not acknowledge that she says she does not drink that much she does not acknowledge having had any alcohol withdrawal events in the past. She may not be forthcoming therefore continue the benzodiazepines and the skin meantime continue to monitor her cardiac rhythm. Will proceed with neurology consultation and proceed with an MRI. Current Visit: Yes Hospitalist: Subjective Interval history: Patient has been seen interviewed and examined and chart has been reviewed. I questioned her regarding issues of alcohol use she does not acknowledge overuse of alcohol but she is acknowledging drinking alcohol every now and then drinks liquor beer. Family concerned that she may be developing withdrawal was as has been before but she denies any history of alcohol withdrawal. I started her on Ativan yesterday as needed seizures. Her cognitive composure still remains quite tangential. Exam - Constitutional Vitals: Period Temp Pulse Resp BP Sys/Poon Pulse Ox Last 24 Hr 96.4 F-98.7 F 71-97 18-22 110-166/79-104 95-99 General appearance: no acute distress - Head Head exam: Present: normocephalic - Eye Eye exam: Present: EOMI, other (Oscillatory nystagmus with disconjugate gaze) Pupils: Present: ARIANA - Neck Neck exam: Present: normal inspection - Respiratory Respiratory exam: Present: clear to auscultation bilaterally - Cardiovascular Cardiovascular exam: Present: regular rate and rhythm - Extremities Exam Extremities exam: Present: full ROM - Neurological Exam Neurological exam: Present: alert, oriented X3, CN II-XII intact - Psychiatric Psychiatric exam: Present: other (Withdrawal moved) - Skin Skin exam: Present: normal color, warm, dry Results - Labs CBC & BMP: 02/15/17 03:58 02/13/17 01:48 Lab Results: I have reviewed the past 24 hour labs (Repeat chemistries tomorrow an MRI is also been ordered)
--- NOTE | 2017-02-17 13:34 | Neurology Consult Note ---
History of Present Illness History of present illness: 56-year-old right-handed -Luxembourger lady with past medical history significant for hypertension, depression, GERD, that presented to the ED at [facility] for the evaluation of nausea, vomiting, diarrhea. Patient reported the onset of symptoms 1 month prior to presentation. She reports that the above symptoms started gradually and in increased in frequency in recent weeks. She reports that she has had weight loss and a loss of appetite. She states that she has not been able to "keep anything down" and becomes dizzy when she ambulates. Upon examination patient was found to have both horizontal and vertical nystagmus. Patient reported that this is been there for a long time. Apparently family reported that she drinks a lot. However patient denies this information. 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 A CT of the head is unremarkable for any acute pathology. Home Medications Medication Instructions Recorded Confirmed Type Atomoxetine HCl [Strattera] 80 mg PO DAILY 02/11/17 02/11/17 History Diclofenac 1% Gel [Voltaren 1% Gel] 1 applic TOP QID PRN 02/11/17 02/11/17 History Donepezil HCl 10 mg PO BEDTIME 02/11/17 02/11/17 History Duloxetine HCl [Duloxetine] 60 mg PO BID 02/11/17 02/11/17 History Estradiol Tab [Estrace Tab] 2 mg PO DAILY 02/11/17 02/11/17 History Fluticasone 50 Mcg Nasal [place] 2 spray BOTH NARES DAILY PRN 02/11/17 02/11/17 History [Flonase Nasal [place]] Lisinopril 2.5 mg PO DAILY 02/11/17 02/11/17 History Montelukast Sodium 10 mg PO BEDTIME 02/11/17 02/11/17 History Kellogg-3/Dha/Epa/Fish Oil [Fish Oil 1 each PO DAILY 02/11/17 02/11/17 History 1,000 mg Softgel] Omeprazole 40 mg PO BID 02/11/17 02/11/17 History Pravastatin Sodium 40 mg PO BEDTIME 02/11/17 02/11/17 History Quetiapine Fumarate 400 mg PO BEDTIME 02/11/17 02/11/17 History Allergies Allergy/AdvReac Type Severity Reaction Status Date / Time adhesive Allergy Severe BLISTER Verified 02/10/17 07:52 Penicillins Allergy RASH Verified 02/10/17 07:52 12 point system: reviewed and no additional remarkable complaints except as stated Medical,Surgical,& Family Hx - Medical History Cardio: History of: Hypertension, Cardiovascular Problems (heart murmur) Psychological: History of: Depression Neurology: History of: Dementia No history of: Seizures HEENT: History of: HEENT Problems (sinus issues) Genitourinary: History of: Kidney Stones Gastrointestinal: History of: GERD Musculoskeletal: History of: Back/Neck Problems (goes to pain clinic Dr. Witt) Hematology: History of: Anemia - Surgical History Reproductive Surgeries: Surgical HX of;: Hysterectomy - Social History Smoking Status: Never smoker Frequency of Alcohol Use: None Type of Drug Use: None Exam - Constitutional Vitals: Period Temp Pulse Resp BP Sys/Poon Pulse Ox Last 24 Hr 96.4 F-98.7 F 71-97 18-22 110-166/79-104 94-99 Exam: GENERAL: Patient is in no acute distress. NECK: Neck is supple. There is no JVD. No carotid bruits present. No thyroid masses. CVS: First and second heart sounds are normal. There is no S3 present. Regular rate and rhythm. RESPIRATORY: Lungs are clear to auscultation without any rales or rhonchi. ABDOMEN: Soft and non-tender. Bowel sounds are present. There is no hepatosplenomegaly. EXT: There is no palpable edema. Peripheral pulses are present. Skin: No rashes Central Nervous system: General: Alert, awake and Oriented x 3 Speech: Fluent Comprehension: Intact and normal Facial expressions: Normal Cranial Nerves: CN1/Olfactory: Normal CN II/ Optic: Normal, Visual [place] unreliable CN III, and : ARIANA & EOMI, nystagmus to both vertical and horizontal nonsustained CN V: Normal & intact CN VII: face is symmetric CNVIII: Normal CN XI/X/XI/XII: Intact and Normal Motor: Bulk and Tone is normal. Strength in the right 4/5 Strength in the left 4/5 Sensory: Decreased for all the modalities of PP, LT and temp sense Reflexes: 1+ and symmetrical Cerebellar function: Normal finger to nose and heel to sinha testing. Toes: Equivocal Gait: Not tested at this time. Patient got dizzy while she was trying to stand up Results - Labs CBC & BMP: 02/15/17 03:58 02/13/17 01:48 Assessment and Plan (1) Nystagmus Status: Acute Assessment and plan: Differential diagnoses would include alcohol induced, Wernicke's Korsakoff encephalopathy, space-occupying lesion of the brain or local eye problem We will check for vitamin B1 Start thiamine MRI brain with and without contrast Thank you for the consult Current Visit: Yes
--- NOTE | 2017-02-17 14:02 | Gastrointestinal Progress Note ---
Assessment and Plan - Time spent with patient Time spent with patient: Greater than 30 minutes (1) Abnormal eye movements Status: Acute Current Visit: Yes (2) Gastritis and duodenitis Status: Chronic Current Visit: Yes (3) Anemia Status: Acute Current Visit: Yes (4) Weight loss, non-intentional Status: Acute Current Visit: Yes (5) Nausea and vomiting in adult patient Status: Acute Assessment and plan: PLEASE NOTE -- automatic citation of patient information is unavoidable in this electronic note. I have made a reasonable effort to review the information cited , but it is not a part of my evaluation, impression, or recommendation unless specifically discussed in the dictated text that follows. As well, voice recognition software was used in the creation of this clinical note. Reasonable effort was made to identify and correct gross errors. Despite proofreading, errors in hedge fund trader may be present, including nonsense verbiage at times. If you encounter such an error, please contact me at [phone] for discussion and correction. -- Lauren Chief complaint: Initial admission for 1 month of gradual worsening of nausea vomiting and diarrhea, associated with weight loss and loss of appetite. Discovered to have E. coli UTI with severe abdominal pain, nausea and vomiting 24 hour events: noted to have new nystagmus yesterday with altered mentation Subjective: Ms. Nela Marrufo states that abdominal pain is improved, but still constant nausea, worse with movement -patient only reporting 2-4 shots of vodka a couple of days a weeks, for many years, but likely under-reporting. Medications: Personally reviewed. Flagyl 500 mg 3 times daily, started February 15, 2017 Aztreonam 1000 mg IV every 8 hours, started February 15, 2017 Protonix 40 mg IV twice daily Not currently getting home medications previously reported, last taken unknown, quetiapine, donepezil, and others REVIEW OF SYSTEMS: Complete other review of systems negative except as noted in the HPI PHYSICAL EXAMINATION: CONSTITUTIONAL: Vital signs reviewed as documented above. In no acute distress. Nontoxic-appearing, but abnormal mentation EYES: Anicteric conjunctiva. Extra-ocular movements are asymmetric, disconjugate , unable to track to periphery, worsens symptoms of nausea with neuro eye exam. vertical and horizontal nystagmus still present. EARS: Able to hear speech at conversational volume level, no external trauma/ masses. MOUTH: No oral/mouth lesions or ulcers. LUNGS: No increased work of breathing or accessory muscle use. GI/ABDOMEN: Unchanged. obese abdomen, soft, Diffusely tender to mild palpation in all areas, nondistended, no rigidity. No palpable mass. No appreciable hepatosplenomegaly, but limited exam due to pain. SKIN: No rash on face, arms, or hands. No palpable lesions MUSCULOSKELETAL: Normal gait. Muscle tone appears normal without any abnormal movements-except eyes. PSYCH: Normal affect. Alert and oriented to person, place, and time. Neuro: with suppressed mental status, memory problems, speech pattern seems more fluid today. Eye exam abnormal-see above. No tremors, no asterixis. Laboratory: Personally reviewed Urine with E. coli, stool culture with 2 different gram-negative rods, which has not yet been speciated: NEGATIVE FOR PATHOGENIC ORGANISMS stool negative for C. difficile. ESR 75 No NEW LABS from today Radiology: Personally reviewed reports and images with no pertinent changes unless noted here: -CT head: no record this has been done -MRI brain: ordered by primary team -Upper GI and small bowel follow-through There is normal passage of contrast through the bowel without significant delay. Caliber appears within normal limits. No abnormal filling defects are identified. Mucosal pattern appears within normal limits. -Prior EGD without peptic ulcer disease, negative for H pylori, but mild chronic duodenitis and gastritis in the duodenum and stomach. -Gastric emptying study normal with 90% gastric emptying at 1 hour. -CT on admission with possible thickening of the wall of the right colon versus under-distension, without oral contrast, as well as chronic L4 compression fracture with degenerative changes, diverticulosis of the colon. Impressions: #Nausea and vomiting with abdominal pain. Concern for primary neurologic etiology, with possible abdominal pain from significant MSK pain related to emesis and wretching, which has decreased with subsequent improvement in abdominal pain. However, NSAID-induced enteritis and Crohn's disease is still on the differential diagnosis in this patient with mild chronic duodenitis and gastritis on EGD, as well as single episode of melena reported, and possible CT findings in the right colon (likely due to underdistension than inflammation. Normal CSP 1 year ago has not been repeated.) Small bowel follow-through without abnormality, but not the most sensitive imaging study for mucosal inflammation that has not resulted in stricturing or stenosis. Elevated ESR can be seen in any inflammatory condition, such as patient's active infection, neurologic etiology or Crohn's disease. Crohn's cannot be differentiated from NSAID-induced enteropathy in the setting of chronic NSAID use. #Weight loss and loss of appetite: likely secondary to nausea/vomiting, could be related to malabsorption. #Anemia, borderline macrocytic/normocytic #Chronic gastritis without H. pylori. #Other specified counseling -- Patient seen for greater than 30 minutes, with direct doctor communication with Dr. Dennis. Greater than 50% of this time was spent counseling regarding differential diagnosis, likely diagnosis, diagnostic and therapeutic options, risks, benefits, and alternatives to procedures and medications, informed consent, and plan of care generally. Patient has expressed understanding and wishes to proceed. Recommendations: -follow-up MRI brain -consider if home psychiatric medications need to be restarted -follow-up new blood cultures (drawn at least 72 hours after antibiotics started ) -follow-up ordered vitamin B12 and folate, iron panel and ferritin fasting, to evaluate for nutritional deficiencies that are common in chronic small bowel inflammation, as well as borderline macrocytic/possibly mixed normocytic anemia -additional nutritional deficiencies can be assessed: Vitamin A, E, D, K, zinc, copper (can use spot values for the latter two in this case, or 24 hour urine is most definitive), B1 (thiamine), and B6 (pyridoxine) -stop all NSAIDs, patient taking aleve at home which could be the cause of chronic gastritis and duodenitis and mimic Crohn's disease. -continue PPI, can transition to oral BID as soon as tolerating diet, as must be taken on an empty stomach and eat 30-60 min later -If B12, folate, or iron deficiency is detected, would recommend antiparietal cell antibody and anti-intrinsic factor antibody to assess for autoimmune gastritis as the cause of this. -I recommend vitamin D 2000 units daily and calcium 800-1200 mg daily while you are on a long-term PPI medication to ensure you are getting adequate intake to help protect against bone loss. -Consider outpatient GI follow-up for repeat EGD in 8-12 weeks off of NSAIDS, to see if duodenitis and gastritis have healed or if further small bowel evaluation is warranted. -Primary team to address L4 compression fracture incidentally noted on CT scan, especially as nerve impingement in this territory can effect abdominal pain symptoms. Shital Aguilar MD, MPH STAFF SKIDDER Current Visit: Yes Exam (Progress Note) - Constitutional Vitals: Period Temp Pulse Resp BP Sys/Poon Pulse Ox Last 24 Hr 96.4 F-98.7 F 71-97 18-22 110-166/79-104 94-99 Results - Labs CBC & BMP: 02/15/17 03:58 02/13/17 01:48
[2017-02-17] MEDS: THIAMINE 200 MG/2 ML VIAL IV SCH (16:44)
[2017-02-17 20:51] LABS: Apearance,Urine CLEAR (Clear); Bilirubin,Urine Negative (Negative); Blood, Urine Negative (Negative); Glucose,Urine (UA) Negative (Negative); Ketones,Urine Negative (Negative); Mucus,Urine Occasional /LPF (Occasional); Nitrite,Urine Negative (Negative); Protein,Urine Negative; RBC,Urine <1 /HPF (0-4); Urine Color Straw (Yellow); Urine Specific Gravity 1.004 (1.001-1.035); Urine Urobilinogen < 2.0 EU/DL (0.2-1.0); WBC,Urine <1 /HPF (0-6)
[2017-02-18] MEDS: AZTREONAM 1,000 MG in SODIUM CHLORIDE 0.9% 100 ML IV SCH ×2 (01:43→08:55)
[2017-02-18] MEDS: SODIUM CHLOR 0.9% KCL 20 MEQ 20 MEQ/1,000 ML BAG IV SCH ×2 (05:50→17:02)
[2017-02-18 07:24] LABS: Basophils % 0.4 % (0.0-0.8); Eosinophils # 0.1 10*3/uL (0.0-0.87); Hematocrit 27.4 VOL% (35.7-47.0); Hemoglobin 9.8 GM/DL (12.0-16.0); Immature Granulocytes % 0.7 %; Immature Granulocytes Absolute 0.05 #; Lymphocytes # 2.8 10*3/uL (1.4-4.0); Lymphocytes % 36.8 % (21.3-54.2); Mean Corpuscular HGB Conc 35.8 GM/DL (32-36); Mean Corpuscular Hemoglobin 35 PG (27-34); Mean Corpuscular Volume 98.9 FL (87-102); Mean Platelet Volume 11.2 FL (9.6-12.0); Monocytes # 0.9 10*3/uL (0.11-0.8); Monocytes % 11.6 % (1.7-12.7); Neutrophils # 3.8 10*3/uL (1.4-7.4); Neutrophils % 49.5 % (38.7-73.9); Platelet Count 204 T/CUMM (130-400); Red Blood Count 2.77 MC/CUMM (3.8-5.5); Red Cell Distribution Width 14.3 % (9.3-17.3); White Blood Count 7.7 T/CUMM (4-12)
[2017-02-18 08:01] LABS: Albumin 2.6 G/DL (3.4-5.0); Calcium 8.2 MG/DL (8.5-10.1); Magnesium 1.3 MG/DL (1.8-2.4); Potassium 3.7 MMOL/L (3.5-5.1); Total Protein 5.7 G/DL (6.4-8.3)
--- NOTE | 2017-02-18 08:40 | Gastrointestinal Progress Note ---
Assessment and Plan (1) Epigastric pain Status: Acute Assessment and plan: This patient has left upper quadrant epigastric tenderness with a bloating component very suspicious for gastroparesis. There may be peptic ulcer disease erosive gastritis possibly erosive esophagitis. Although the patient has a history of stricturing she has been swallowing adequately post dilation by Dr. Osborne approximately 3-4 months ago. She just simply cannot keep anything down. I am not sure if she is on acid blocking medication on a routine basis but she certainly needs to be. We have increased her Protonix IV to twice a day. She really does not have any diarrhea but does have a single episode of melena. CT scan findings are likely an over read. The prior colonoscopy done approximately a year ago not showing any inflammatory bowel disease. She is not having any bilateral lower quadrant tenderness. We will perform upper endoscopy tomorrow with biopsies to look for the Helicobacter pylori again. We may need to get her completely suppressed with this medications before attempting to treat her with amoxicillin clarithromycin as she did not do well with these medications on last attempted treatment. 02/12/17--patient has minimal changes in her esophagus and stomach. I did not see a great deal of retained fluid in the stomach or food, we will need to check tomorrow to see if a formalize gastric emptying study shows evidence of gastroparesis. Hold off on treatment with motility agents. Biopsies were taken for Helicobacter pylori as well as celiac sprue. Continue Protonix twice daily and observe on clear liquid diet to see how she does with these. This patient was said to have been previously positive for Helicobacter pylori, no gross erosions or ulcerations were noted in the stomach though. Esophageal biopsies were taken for eosinophilic esophagitis as well. 02/13/17--patient's EGD was performed yesterday and did not show a excessive amount of food or fluid in the stomach. We are checking gastric emptying study see if she has objective evidence of gastroparesis. Biopsies of the stomach are pending. The patient is already on twice daily proton pump inhibitors. We continue to observe. 02/14/17--Patient has about 93% gastric emptying at 1 hour, indicating that she does not have objective evidence of gastroparesis. She has not had any diarrhea since arriving and likely does not have the colitis read on the initial CT scan. What she does appear to have is gram negatives growing out of her urine which may be reflective of urinary tract infection that has systemic symptoms with the patient's nausea and vomiting. She really has minimal findings on upper endoscopy and a normal gastric emptying study. I suspect that she may have nausea and vomiting secondary to UTI. I will go ahead and check her CBC levels tomorrow after starting Cipro 500 mg twice daily today. We could possibly even switch her over to Protonix 40 mg twice daily. Will write a diet for the patient that is more solid--unfortunately there is no bland diet available-- we will write for a BRAT diet instead. 02/15/17--biopsies have come back showing no Helicobacter pylori and the mild chronic duodenitis and gastritis noted in the duodenum/stomach. She appears actually no better after taking the Cipro although her white count has improved slightly. On evaluation of the urine culture the patient does have E. coli that appears resistant to Cipro as well as Septra. Will try the patient on some ceftriaxone as it appears to be sensitive to this. She does have a penicillin allergy but this was not shortness of breath but rather a rash many years ago. Ceftriaxone will have ~15% cross reactivity. She is not tolerating the bland diet and we will back this back to clear liquids. Given the diffuse nature of her pain will check the patient for partial bowel obstruction with a small bowel follow-through tomorrow. N.p.o. after midnight for this in the morning. 02/18/17--The patient was placed on a combination of Flagyl and aztreonam for the above urinary tract infection. Despite being treated in the above fashion the patient's nausea and moderate abdominal pain continue at this point. Weekend GI coverage brings up the concern over potential Crohn's disease which would be unlikely in this age group but a ischemic colitis is certainly in the differential as is a microscopic and collagenous colitis or potentially even infectious colitis. The patient does have some mild gastritis and duodenitis but has not responded to twice daily PPIs. We will go ahead and arrange for a prep for tomorrow. Again I remain dubious that colitis is actually present, but we can establish this fairly easily. Current Visit: Yes (2) History of esophageal stricture Status: Chronic Assessment and plan: Previously dilated approximately 3-4 months ago, the procedure reports are pending. No need to redilate at this time. Agree with increasing Protonix to 40 mg twice daily. 02/12/17--biopsies for eosinophilic esophagitis obtained. Patient did have a lower esophageal ring which might be associated with this type of condition, she is not having dysphagia now. 02/13/17--no difficulty with swallowing. Biopsies pending for eosinophilic esophagitis as mentioned above. 02/14/17--no longer an issue, patient is swallowing adequately. 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 Reassurance. 02/18/17--No further difficulty with swallowing, continue PPIs. Current Visit: Yes (3) History of melena Status: Acute Assessment and plan: The patient appears to be having coffee-ground emesis in addition to a single episode of melena. I suspect she may have had a Marisol-Campbell tear. Upper endoscopy is pending for tomorrow. 02/12/17--no gross evidence of a cause for melena seen on today's upper endoscopy. Biopsies are pending. There may been a Marisol-Campbell tear that is since healed up completely. This is my suspicion. 02/13/17--no cause for melena seen on upper endoscopy. I believe this patient may have had a Marisol-Campbell that is completely healed at this point. 02/14/17--the patient is noted to have a slightly decreased hematocrit down to 32 %. 02/15/17--patient does not have any gross evidence of GI bleeding however the hematocrit is dropped from 36% to 28% now, continue to watch. I do not think that should be able to tolerate a bowel prep even if we want to do a colonoscopy in the near future. She has not yet produced any stool for culture evaluation, we did explain to her again how important it was to obtain this. 02/18/17--This patient's hematocrit remained stable if low, again we will check the patient's colon for evidence of ischemic colitis that may produce the bleeding and some of the pain. Current Visit: Yes (4) Hematemesis with nausea Status: Acute Assessment and plan: As mentioned above. Again I suspect a Marisol-Campbell tear. Upper endoscopy was ordered. The patient knows that she has a chance for the following: Bleeding, infection, perforation, cardiac and pulmonary compromise. 02/12/17--No gross evidence of a Marisol-Campbell tear on endoscopy 02/12/17 as mentioned. Biopsies pending. 02/13/17--As mentioned above. 02/14/17--No further evidence of hematemesis. 02/15/17--no further evidence of hematemesis. 02/18/17--although the patient is having ongoing mild nausea no further vomiting has occurred. Current Visit: Yes Gastroenterology - PN: Subj Interval history: Patient states that overall she feels less nauseous but still has diffuse abdominal pain in all quadrants. She states that her diarrhea has been improving although somewhat nebulous as to how many stools she is having per day. She states that the last time she had diarrhea was 2 or 3 days ago when she submitted a stool cultures. She does appear to have abdominal pain when palpated in any quadrant. She was given a regular diet this morning. Given the ongoing pain and previous CT scan findings, at this point will probably go ahead and schedule her for colonoscopy tomorrow morning to look for diffuse colitis. I am very dubious that this is going to be found but given these ongoing pain and the previous CAT scan findings we certainly need to look at this point. Exam (Progress Note) - Constitutional Vitals: Period Temp Pulse Resp BP Sys/Poon Pulse Ox Last 24 Hr 97.6 F-98.7 F 79-92 18-22 117-141/71-95 94-98 General appearance: no acute distress - Head Head exam: Present: normocephalic - Eye Eye exam: Present: EOMI - Respiratory Respiratory exam: Present: clear to auscultation bilaterally. Absent: rhonchi, stridor, wheezes - Cardiovascular Cardiovascular exam: Present: regular rate and rhythm - GI/Abdominal GI/Abdominal exam: Present: normal bowel sounds, distended, tenderness (Diffuse in all quadrants, mild nature, the abdomen remains soft and slightly distended) , soft. Absent: firm, guarding, rebound - Neurological Exam Neurological exam: Present: alert, oriented X3 - Psychiatric Psychiatric exam: Present: normal affect, normal mood - Skin Skin exam: Present: warm Results - Labs CBC & BMP: 02/18/17 06:32 02/18/17 06:32
[2017-02-18] MEDS: ONDANSETRON 4 MG/2 ML VIAL IV PRN ×3 (08:54→23:44)
[2017-02-18] MEDS: PANTOPRAZOLE 40 MG VIAL IV SCH ×2 (08:54→20:26)
[2017-02-18] MEDS: THIAMINE 200 MG/2 ML VIAL IV SCH (08:54)
[2017-02-18] MEDS: BISACODYL 5 MG TABLET PO SCH ×2 (08:55→17:02)
[2017-02-18] MEDS: metroNIDAZOLE 500 MG TABLET PO SCH (08:55)
--- NOTE | 2017-02-18 11:25 | Hospitalist Progress Note ---
Assessment and Plan (1) Peritonitis Status: Acute Assessment and plan: Patient has rebound tenderness and diffuse abdominal discomfort. This looks sounds like mesenteritis. An infective colitis is a possibility. This turns out to be Campylobacter treatment of choice will be azithromycin Stool cultures have isolated no enteric pathogens at this time. I am not sure if Campylobacter antigen was tested for as there is no comment on the report for that. Current Visit: Yes (2) Colitis Status: Acute Assessment and plan: Continue antibiotics and metronidazole 500 mg p.o. every 8 Current Visit: Yes (3) Nausea and vomiting in adult patient Status: Acute Assessment and plan: Vomiting is resolved with patient is reporting occasions of nausea (? Gastroparesis) Current Visit: Yes (4) UTI (urinary tract infection) Status: Acute Assessment and plan: Repeat UA is clean. Discontinue aztreonam and metronidazole, the latter being used for coverage of the above mentioned colitis. CT scan Current Visit: Yes (5) Nystagmus Status: Acute Assessment and plan: And has unprovoked rhythmical eye movement with oscillatory pattern no other neurologic finding other than complaint of leg weakness denies a history of multiple sclerosis. Patient will be consulted to neurology. In the preceding days the only thing that I had not noticed was that the patient had quite tangential amount of giving answers. Do not notice any motor defect. Length yesterday from the nurse in charge on the floor that the family member reports that the patient actually does use alcohol overload at home and at times she has had these neurologic and behavioral changes that proceed withdrawal symptoms. I asked the patient today and she did not acknowledge that she says she does not drink that much she does not acknowledge having had any alcohol withdrawal events in the past. She may not be forthcoming therefore continue the benzodiazepines and the skin meantime continue to monitor her cardiac rhythm. Will proceed with neurology consultation and proceed with an MRI today 18 February 2017. Current Visit: Yes Hospitalist: Subjective Interval history: Patient has been seen interviewed and examined and chart has been reviewed. Note from gastroenterology is also noted is planned for colonoscopy tomorrow to verify for any mucosal pathology to explain her abdominal pain and a history of diarrhea (the latter have been resolved at this time) ongoing nausea but no vomiting now. As noted in the preceding notes there is a history of alcohol overuse at home that she did not report to us and does not acknowledge it on my conversation with her from today for yesterday. Because of her cognitive impairment also initially conjugate gaze that is been noted whilst in the hospital is possibility of Wernicke-Korsakoff psychosis. Neurology has evaluated the patient she is now on IV thiamine. She does have benzodiazepine ordered for use in case there is signs of withdrawal. She is able to talk to me today without any limitations does seem to be more with it this morning then on preceding days. B12 levels are normal folate is normal Exam - Constitutional Vitals: Period Temp Pulse Resp BP Sys/Poon Pulse Ox Last 24 Hr 97.6 F-98.7 F 79-92 18-22 117-141/71-95 94-98 General appearance: normal weight - Head Head exam: Present: normocephalic, atraumatic - Eye Eye exam: Present: nystagmus Pupils: Present: ARIANA - ENT ENT exam: Present: normal exam - Neck Neck exam: Present: normal inspection - Respiratory Respiratory exam: Present: clear to auscultation bilaterally - Cardiovascular Cardiovascular exam: Present: regular rate and rhythm - GI/Abdominal GI/Abdominal exam: Present: normal bowel sounds, soft, other (Diffuse tenderness to acknowledge) - Extremities Exam Extremities exam: Present: full ROM - Neurological Exam Neurological exam: Present: alert, oriented X3, CN II-XII intact - Psychiatric Psychiatric exam: Present: other (Slow affect) - Skin Skin exam: Present: normal color, warm, dry Results - Labs CBC & BMP: 02/18/17 06:32 02/18/17 06:32 Lab Results: I have reviewed the past 24 hour labs
--- NOTE | 2017-02-18 12:52 | Magnetic Resonance Report ---
Exam: MR head/brain w and wo con Date: 02/18/2017 4:10 PM Comparison: None Indication: Ataxia disconjugate gaze Technical: 1.5 Shila magnet Axial T1 pre-and postcontrast, ADC, DWI, FLAIR, gradient echo and FSE T2 Sagittal T1 precontrast, FLAIR Coronal postcontrast T1 Contrast: 15 cc Dotarem Findings: Exam reveals no acute ADC/ diffusion imaging abnormality. The brainstem reveals no acute signal characteristics abnormality The cerebellum reveals mild atrophic changes suspected. The cerebral hemispheres exhibit small vessel changes are present in the periventricular and subcortical white matter regions mildly present on today's exam. No contrast enhancing lesions are present. The corpus callosum is demonstrated with mild thinning. The seventh and eighth cranial nerves and cerebral pontine angles are intact. The pituitary gland, infundibulum and optic chiasm are intact. The paranasal sinuses exhibit normal signal characteristics. The mastoid sinuses are unremarkable. The globes and intra-and extraconal spaces are unremarkable. Impression: 1. Minimal small vessel disease and mild atrophic changes of the cerebellum and cerebral hemispheres without acute hemorrhage infarction or mass effect. PROCEDURE INTERPRETED AT [facility] DEPARTMENT OF RADIOLOGY Final Report Signed by: Dr. Kurtis Tan
--- NOTE | 2017-02-18 15:07 | Neurology Progress Note ---
Neurology - PN : Subjective Interval history: Patient seems to be doing better. No new problems reported. Nystagmus is about the same. Patient denies drinking heavily. MRI of the brain is unremarkable Exam (Progress Note) - Constitutional Vitals: Period Temp Pulse Resp BP Sys/Poon Pulse Ox Last 24 Hr 97.6 F-98.7 F 79-92 18-22 117-141/71-95 95-98 Exam: GENERAL: Patient is in no acute distress. NECK: Neck is supple. There is no JVD. No carotid bruits present. No thyroid masses. CVS: First and second heart sounds are normal. There is no S3 present. Regular rate and rhythm. RESPIRATORY: Lungs are clear to auscultation without any rales or rhonchi. ABDOMEN: Soft and non-tender. Bowel sounds are present. There is no hepatosplenomegaly. EXT: There is no palpable edema. Peripheral pulses are present. Skin: No rashes Central Nervous system: General: Alert, awake and Oriented x 3 Speech: Fluent Comprehension: Intact and normal Facial expressions: Normal Cranial Nerves: CN1/Olfactory: Normal CN II/ Optic: Normal, Visual Gurrola unreliable CN III, and : ARIANA & EOMI, nystagmus to both vertical and horizontal nonsustained CN V: Normal & intact CN VII: face is symmetric CNVIII: Normal CN XI/X/XI/XII: Intact and Normal Motor: Bulk and Tone is normal. Strength in the right 4/5 Strength in the left 4/5 Sensory: Decreased for all the modalities of PP, LT and temp sense Reflexes: 1+ and symmetrical Cerebellar function: Normal finger to nose and heel to sinha testing. Toes: Equivocal Gait: Trying to get up and walk with the physical therapy Results - Labs CBC & BMP: 02/18/17 06:32 02/18/17 06:32 Assessment and Plan (1) Nystagmus Status: Acute Assessment and plan: Continue vitamin B1 No further intervention from neuro standpoint Sign off please call as needed Current Visit: Yes
[2017-02-18] MEDS ORDERED: POLYETHYLENE GLYCOL POWDER 255 GM BOTTLE PO ONE (18:00)
[2017-02-18] MEDS ORDERED: MAGNESIUM CITRATE 300 ML BOTTLE PO ONE (21:00)
[2017-02-19] MEDS: BISACODYL 5 MG TABLET PO SCH
[2017-02-19] MEDS: SODIUM CHLOR 0.9% KCL 20 MEQ 20 MEQ/1,000 ML BAG IV SCH ×2 (01:16→16:56)
[2017-02-19] MEDS: MAGNESIUM SULF RIDER 2 GM in PREMIX 1 EACH IV PRN ×2 (02:10→04:56)
[2017-02-19] MEDS: THIAMINE 200 MG/2 ML VIAL IV SCH (08:25)
[2017-02-19] MEDS: PANTOPRAZOLE 40 MG VIAL IV SCH (08:25)
--- NOTE | 2017-02-19 12:37 | Hospitalist Progress Note ---
Assessment and Plan (1) Colitis Status: Acute Assessment and plan: She has been on metronidazole. Patient is planned for a colonoscopy today. Awaiting report from that. Current Visit: Yes (2) Nausea and vomiting in adult patient Status: Acute Assessment and plan: Vomiting is resolved with patient is reporting occasions of nausea (? Gastroparesis) Current Visit: Yes (3) UTI (urinary tract infection) Status: Acute Assessment and plan: Repeat UA is clean. Discontinue aztreonam and metronidazole, the latter being used for coverage of the above mentioned colitis. CT scan Current Visit: Yes (4) Nystagmus Status: Acute Assessment and plan: This is a lot better now. Still sees some of it especially on the right lateral gaze. 3 days ago her family member had come to the floor on the creatinine this patient drinks a lot. I talked with the patient at length regarding these she continued to deny the fact that she drinks a lot. The neurologic observations could be a sign of Wernicke-Korsakoff syndrome patient was consulted to neurology and IV thiamine and been given. Some more alongside the patient's neurologic symptoms seem to have improved. Current Visit: Yes Hospitalist: Subjective Interval history: Patient has been seen interviewed and examined and chart has been reviewed. She still complaining of abdominal pain but she is more much more cold coordinated today. Cognitive output is much more collected. This is a lady who was admitted to the hospital nausea vomiting and diarrhea, CT scan showed possible colitis on. She has had continuous complaints of abdominal pain with associated diffuse tenderness. Is been planned for colonoscopy today unfortunately she was not completely cleaned out this morning so was still waiting for that procedure. Exam - Constitutional Vitals: Period Temp Pulse Resp BP Sys/Poon Pulse Ox Last 24 Hr 97.6 F-98.8 F 72-89 18-20 110-123/70-83 94-100 General appearance: normal weight - Head Head exam: Present: normocephalic, atraumatic - Eye Eye exam: Present: EOMI Pupils: Present: ARIANA - ENT ENT exam: Present: normal oropharynx, other (No cobblestoning noted in the mouth ) - Respiratory Respiratory exam: Present: clear to auscultation bilaterally - Cardiovascular Cardiovascular exam: Present: regular rate and rhythm - GI/Abdominal GI/Abdominal exam: Present: normal bowel sounds, soft - Extremities Exam Extremities exam: Present: full ROM - Neurological Exam Neurological exam: Present: alert, oriented X3, CN II-XII intact - Psychiatric Psychiatric exam: Present: flat affect, other - Skin Skin exam: Present: normal color, warm, dry Results - Labs CBC & BMP: 02/18/17 06:32 02/18/17 06:32 Lab Results: I have reviewed the past 24 hour labs
[2017-02-19] MEDS ORDERED: LIDOCAINE 2% 5 ML VIAL ONE (13:17)
[2017-02-19] MEDS ORDERED: PROPOFOL 200 MG/20 ML VIAL IV ONE (13:17)
--- NOTE | 2017-02-19 13:18 | Operative Note ---
Date of procedure: 02/19/17 Pre-op diagnosis: Nausea and vomiting, CT scan findings C/W colitis Post-op diagnosis: other (Possible colitis noted especially in the right colon versus telangiectasias in a patient with some prep artifact. Biopsies are pending. Given the appearance would tend to favor a self-limited/infectious colitis. Mild left-sided diverticulosis and moderate size internal hemorrhoids also noted.) Procedure: PROCEDURE: Colonoscopy with hot biopsy polypectomy and cold biopsy for pathology REFERRING PHYSICIAN: Jeffery Gonzalez MD INDICATIONS: This is a patient who has chronic nausea and vomiting diffuse abdominal pain CT scan findings of possible colitis. The prior H&P was reviewed and interrim changes are as noted: See prior GI consultation this admission ENDOSCOPIST: Wilner Dent MD ENDOSCOPE: [facility] [place] Video 100 System colonoscope COLON PREPARATION: 238 gm of PEG containing laxative and 1.9 liters of gatoraid/sports drink and dulcolax 15 mg q8 hours x 3 ASA CLASS: 3 EXAM: CV: regular rate and rhythm Respiratory: Clear without wheezes Abdominal: active bowel sounds Rectal: Good tone, no fissures or fistulas MEDICATION: Per nursing anesthesia protocol, see their notes PROCEDURE: After discussion of the potential risks and benefits of colonoscopy, the informed consent was obtained, from patient or health care surrogate. The patient was then placed in the left lateral decubitus position where sedation was achieved as noted above. Rectal examination was followed by insertion of the colonoscope. The colonoscope was passed under direct visualization to the cecum. Advancement was facilitated by insertion/withdrawl techniques, abdominal pressure and patient positioning. Once the cecal pole was reached, slow withdrawal was performed with the findings as noted below. The patient tolerated the procedure well and without complication. QUALITY OF PREP: Excellent WITHDRAWL TIME: 6 minutes 53 seconds BIOPSIES: Cecum/ascending biopsies with ascending polyp, descending sigmoid routine biopsies PHOTOGRAPHS: Obtained FINDINGS: The musoca appeared normal in the following regions: rectum, sigmoid colon, descending colon, splenic flexure, transverse colon, hepatic flexure, ascending colon and cecum. Position within the cecum was confirmed by ileocecal valve, appendiceal oriface, and the convergence of folds (crows foot) . No mass was noted throughout the colon. Very mild left-sided diverticulosis noted. There appeared to be a low-grade colitis throughout the entirety of the colon with mild erythema versus prep artifact. Moderate size internal hemorrhoids were noted on retroflex. The patient appeared to have some telangiectasias versus worsening of the colitis in the right colon particularly the proximal ascending and cecal regions. Again multiple biopsies were taken throughout the cecum, ascending/descending and sigmoid regions. There was a single 6 mm polyp noted in the ascending colon removed by hot biopsy. Intubation of the TI was achieved x 5 cm with normal appearence, no evidence of Crohn's at all. IMPRESSION: Possible colitis noted especially in the right colon versus telangiectasias in a patient with some prep artifact. Biopsies are pending. Given the appearance would tend to favor a self-limited/infectious colitis. Mild left-sided diverticulosis and moderate size internal hemorrhoids also noted. RECOMMENDATIONS: High fiber diet Repeat colonosocopy will be in 3 years for greater than 3 adenomas, 5 years for 1-3 adenomas, or 10 years for hyperplastic polyps (only) or if no polyps discovered. Citrucel 1 tablespoon in 12 oz juice BID: 1 bottle: :11 Follow up by phone for biopsy results in 1-2 weeks by phone Wilner Dent MD COPY TO: Jeffery Gonzalez MD Anesthesia: MAC Surgeon / Physician: Wilner Dent Estimated blood loss: minimal Specimens: other (cecum/ascending and ascending polyp, descending/sigmoid) Results - Labs CBC & BMP: 02/18/17 06:32 02/18/17 06:32 Discharge Plan - Discharge Medications No Action Montelukast Sodium 10 mg PO BEDTIME Lisinopril 2.5 mg PO DAILY Pravastatin Sodium 40 mg PO BEDTIME Donepezil HCl 10 mg PO BEDTIME Atomoxetine HCl [Strattera] 80 mg PO DAILY Omeprazole 40 mg PO BID Fluticasone 50 Mcg Nasal Selmer [Flonase Nasal Selmer] 2 spray BOTH NARES DAILY PRN PRN Reason: Congestion Diclofenac 1% Gel [Voltaren 1% Gel] 1 applic TOP QID PRN PRN Reason: Pain Riparius-3/Dha/Epa/Fish Oil [Fish Oil 1,000 mg Softgel] 1 each PO DAILY Quetiapine Fumarate 400 mg PO BEDTIME Estradiol Tab [Estrace Tab] 2 mg PO DAILY Duloxetine HCl [Duloxetine] 60 mg PO BID - Follow Up or Referral - Forms/Instructions
--- NOTE | 2017-02-19 13:56 | Anesthesia Post-Op ---
Anesthesia Post OP - Post Ansesthetic Evaluation Patient seen in post op: Yes Resp: within normal limits CV: within normal limits Mental: within normal limits Temp: within normal limits Uvra-[id number]-Omuuetsak: within normal limits Nausea and Vomiting: within normal limits Pain: within normal limits
--- NOTE | 2017-02-19 13:58 | Gastrointestinal Progress Note ---
Assessment and Plan (1) Epigastric pain Status: Acute Assessment and plan: This patient has left upper quadrant epigastric tenderness with a bloating component very suspicious for gastroparesis. There may be peptic ulcer disease erosive gastritis possibly erosive esophagitis. Although the patient has a history of stricturing she has been swallowing adequately post dilation by Dr. Osborne approximately 3-4 months ago. She just simply cannot keep anything down. I am not sure if she is on acid blocking medication on a routine basis but she certainly needs to be. We have increased her Protonix IV to twice a day. She really does not have any diarrhea but does have a single episode of melena. CT scan findings are likely an over read. The prior colonoscopy done approximately a year ago not showing any inflammatory bowel disease. She is not having any bilateral lower quadrant tenderness. We will perform upper endoscopy tomorrow with biopsies to look for the Helicobacter pylori again. We may need to get her completely suppressed with this medications before attempting to treat her with amoxicillin clarithromycin as she did not do well with these medications on last attempted treatment. 02/12/17--patient has minimal changes in her esophagus and stomach. I did not see a great deal of retained fluid in the stomach or food, we will need to check tomorrow to see if a formalize gastric emptying study shows evidence of gastroparesis. Hold off on treatment with motility agents. Biopsies were taken for Helicobacter pylori as well as celiac sprue. Continue Protonix twice daily and observe on clear liquid diet to see how she does with these. This patient was said to have been previously positive for Helicobacter pylori, no gross erosions or ulcerations were noted in the stomach though. Esophageal biopsies were taken for eosinophilic esophagitis as well. 02/13/17--patient's EGD was performed yesterday and did not show a excessive amount of food or fluid in the stomach. We are checking gastric emptying study see if she has objective evidence of gastroparesis. Biopsies of the stomach are pending. The patient is already on twice daily proton pump inhibitors. We continue to observe. 02/14/17--Patient has about 93% gastric emptying at 1 hour, indicating that she does not have objective evidence of gastroparesis. She has not had any diarrhea since arriving and likely does not have the colitis read on the initial CT scan. What she does appear to have is gram negatives growing out of her urine which may be reflective of urinary tract infection that has systemic symptoms with the patient's nausea and vomiting. She really has minimal findings on upper endoscopy and a normal gastric emptying study. I suspect that she may have nausea and vomiting secondary to UTI. I will go ahead and check her CBC levels tomorrow after starting Cipro 500 mg twice daily today. We could possibly even switch her over to Protonix 40 mg twice daily. Will write a diet for the patient that is more solid--unfortunately there is no bland diet available-- we will write for a BRAT diet instead. 02/15/17--biopsies have come back showing no Helicobacter pylori and the mild chronic duodenitis and gastritis noted in the duodenum/stomach. She appears actually no better after taking the Cipro although her white count has improved slightly. On evaluation of the urine culture the patient does have E. coli that appears resistant to Cipro as well as Septra. Will try the patient on some ceftriaxone as it appears to be sensitive to this. She does have a penicillin allergy but this was not shortness of breath but rather a rash many years ago. Ceftriaxone will have ~15% cross reactivity. She is not tolerating the bland diet and we will back this back to clear liquids. Given the diffuse nature of her pain will check the patient for partial bowel obstruction with a small bowel follow-through tomorrow. N.p.o. after midnight for this in the morning. 02/18/17--The patient was placed on a combination of Flagyl and aztreonam for the above urinary tract infection. Despite being treated in the above fashion the patient's nausea and moderate abdominal pain continue at this point. Weekend GI coverage brings up the concern over potential Crohn's disease which would be unlikely in this age group but a ischemic colitis is certainly in the differential as is a microscopic and collagenous colitis or potentially even infectious colitis. The patient does have some mild gastritis and duodenitis but has not responded to twice daily PPIs. We will go ahead and arrange for a prep for tomorrow. Again I remain dubious that colitis is actually present, but we can establish this fairly easily. 02/19/17--the patient's colonoscopy today demonstrated mild erythema throughout the colon but nothing that appeared to be ischemic and certainly no cancer although was a single polyp noted in the proximal ascending colon removed by hot biopsy. The terminal ileum was explored and did not show any evidence of Crohn's disease. Overall picture is 1 of either prep artifact with a few additional telangiectasias in the right colon versus a diffuse probably infectious colitis being treated by the patient's current antibiotic therapy. This evaluation completes the GI workup. I would try to advance her to a more solid diet and give her antinauseants as required. We also need to consider switching her over to oral antibiotics, for probable discharge. She should be left on Protonix twice daily in addition to these antibiotics and antinauseants. She can certainly follow up with me but I am at a loss for what more to do with her considering all the normal studies we have seen during this admission. We will go ahead and restart a low residue diet to see if this makes a difference. Current Visit: Yes (2) History of esophageal stricture Status: Chronic Assessment and plan: Previously dilated approximately 3-4 months ago, the procedure reports are pending. No need to redilate at this time. Agree with increasing Protonix to 40 mg twice daily. 02/12/17--biopsies for eosinophilic esophagitis obtained. Patient did have a lower esophageal ring which might be associated with this type of condition, she is not having dysphagia now. 02/13/17--no difficulty with swallowing. Biopsies pending for eosinophilic esophagitis as mentioned above. 02/14/17--no longer an issue, patient is swallowing adequately. 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 Reassurance. 02/18/17--No further difficulty with swallowing, continue PPIs. 02/19/17--Continue proton pump inhibition as we have done up to this point. Current Visit: Yes (3) History of melena Status: Acute Assessment and plan: The patient appears to be having coffee-ground emesis in addition to a single episode of melena. I suspect she may have had a Marisol-Campbell tear. Upper endoscopy is pending for tomorrow. 02/12/17--no gross evidence of a cause for melena seen on today's upper endoscopy. Biopsies are pending. There may been a Marisol-Campbell tear that is since healed up completely. This is my suspicion. 02/13/17--no cause for melena seen on upper endoscopy. I believe this patient may have had a Marisol-Campbell that is completely healed at this point. 02/14/17--the patient is noted to have a slightly decreased hematocrit down to 32 %. 02/15/17--patient does not have any gross evidence of GI bleeding however the hematocrit is dropped from 36% to 28% now, continue to watch. I do not think that should be able to tolerate a bowel prep even if we want to do a colonoscopy in the near future. She has not yet produced any stool for culture evaluation, we did explain to her again how important it was to obtain this. 02/18/17--This patient's hematocrit remained stable if low, again we will check the patient's colon for evidence of ischemic colitis that may produce the bleeding and some of the pain. 02/19/17--this patient has multiple telangiectasias in her right colon likely a source of some of the blood loss. They are numerous and there is really not any point to try to eradicate them with argon plasma coagulation. Avoidance of anticoagulation is my advice. We will see if there is pathologic evidence of colitis prep she will respond to the antibiotics being given at this point. Again, her GI workup is complete for the present time. Current Visit: Yes (4) Hematemesis with nausea Status: Acute Assessment and plan: As mentioned above. Again I suspect a Marisol-Campbell tear. Upper endoscopy was ordered. The patient knows that she has a chance for the following: Bleeding, infection, perforation, cardiac and pulmonary compromise. 02/12/17--No gross evidence of a Marisol-Campbell tear on endoscopy 02/12/17 as mentioned. Biopsies pending. 02/13/17--As mentioned above. 02/14/17--No further evidence of hematemesis. 02/15/17--no further evidence of hematemesis. 02/18/17--although the patient is having ongoing mild nausea no further vomiting has occurred. 02/19/17--No further coffee-ground emesis has been seen. The patient is still vaguely nauseous, this likely also is improving. Would strongly consider discharge as mentioned above with the twice daily Protonix, oral antibiotics, and likely some Phenergan to help with the nausea in the short-term. Current Visit: Yes Gastroenterology - PN: Subj Interval history: The patient feels no better than yesterday but is able to tolerate the full colon prep as well as some solid food. She overall does feel better with clear liquid diet but again realizes that she has to advance her diet at some point. Colonoscopy today demonstrated prep artifact versus mild colitis with a few telangiectasias in the right colon but no gross evidence of cancer or ischemic colitis, diverticulitis or other lesions. Terminal ileum was negative for any evidence of Crohn's disease. She is being treated with antibiotics for an underlying urinary tract infection and likely this will be covering her for gram -negative organisms that might have resulted in colitis. Biopsies confirming colitis versus prep artifact are pending. Exam (Progress Note) - Constitutional Vitals: Period Temp Pulse Resp BP Sys/Poon Pulse Ox Last 24 Hr 97.6 F-98.8 F 72-89 18-20 110-139/70-84 94-100 General appearance: mild distress - Head Head exam: Present: normocephalic - Eye Eye exam: Present: EOMI - Respiratory Respiratory exam: Present: clear to auscultation bilaterally. Absent: rhonchi, stridor, wheezes - Cardiovascular Cardiovascular exam: Present: regular rate and rhythm - GI/Abdominal GI/Abdominal exam: Present: normal bowel sounds, distended (Slight distention), tenderness (Diffuse tenderness noted in the abdomen mostly in the periumbilical region), soft. Absent: guarding, rebound - Extremities Exam Extremities exam: Absent: edema - Neurological Exam Neurological exam: Present: alert, oriented X3 - Psychiatric Psychiatric exam: Present: normal affect, depressed - Skin Skin exam: Present: warm Results - Labs CBC & BMP: 02/18/17 06:32 02/18/17 06:32
[2017-02-19] MEDS: PROMETHAZINE 25 MG TABLET PO SCH ×2 (15:00→20:57)
[2017-02-19] MEDS: PANTOPRAZOLE 40 MG TABLET PO SCH (20:57)
[2017-02-20] MEDS: SODIUM CHLOR 0.9% KCL 20 MEQ 20 MEQ/1,000 ML BAG IV SCH ×4 (01:04→17:03)
[2017-02-20] MEDS: PROMETHAZINE 25 MG TABLET PO SCH ×4 (01:46→20:40)
[2017-02-20] MEDS: THIAMINE 200 MG/2 ML VIAL IV SCH (09:31)
[2017-02-20] MEDS: PANTOPRAZOLE 40 MG TABLET PO SCH ×2 (09:31→20:40)
--- NOTE | 2017-02-20 11:28 | Pathology Report from [facility] ---
[facility] ACCESSION # : [id number] PATIENT NAME : Neal Marrufo ORDERING DR : Wilner Dent MD CLINICAL HX: Anemia POST-OP DX: Same SPECIMEN INFO: #1 RT colon BX, RT colon polyp #2 Random BX GROSS DESCRIPTION: Received in formalin in two parts labeled:#1 NELA AMRRUFO & # 1 is an aggregate of pink baez mucosal tissue measuring 0.4 x 0.6 cm submitted in cassette #1.#2 NELA MARRUFO & #2 are fragments of pink baez mucosal tissue measuring 1 x 0.4 cm submitted in cassette #2. DIAGNOSIS FOR NELA MARRUFO: #1 RIGHT COLON BIOPSY, RIGHT COLON POLYP: Tubular adenoma, superficial chronic inflammation, benign lymphoid aggregates.#2 RANDOM BIOPSIES: Superficial chronic inflammation, benign lymphoid aggregates, focal superficial neutrophilic debris. No evidence of inflammatory bowel disease, lymphocytic/collagenous colitis, ischemic changes, pseudomembrane, or malignancy.Most consistent with self-limited colitis. COLLECTED DATE: 02/19/2017 [facility] REPORT DATE: 02/20/2017 ELECTRONICALLY SIGNED BY: Nupur Saucedo M.D. 02/20/2017 - 9:46:45 JENNIFER
--- NOTE | 2017-02-20 12:17 | Hospitalist Progress Note ---
Assessment and Plan (1) Colitis Status: Acute Assessment and plan: She is still complaining of some mild nausea in the lower abdominal pain. Stool assessment for pathogens was negative including bacterial cultures for Yersinia and Campylobacter. Ova I am concerned about possibility of sensitivity of cultures as regard to Campylobacter which clinically should be considered in the differential diagnosis of this clinical syndrome. Patient presented to the hospital with a rather protracted episode of diarrhea abdominal pain nausea and vomiting and cramping. So far the only thing found of concern is a possibly resolving colitis involving the right part of the colon. Colonoscopy done yesterday. Upper GI endoscopy did not reveal much. She still has significant discomfort with palpation over the abdomen suggesting possibility of mesenteritis a common finding with Campylobacter. As such I discussed with the laboratory to have Campylobacter antigen sent out for assessment. I am leaning towards giving this lady azithromycin at least 4 doses 500 mg a day each. This should be taken with food. Hopefully this will improve her situation. I intend to assist the patient again tomorrow with intention to discharge Current Visit: Yes (2) Nausea and vomiting in adult patient Status: Acute Assessment and plan: Vomiting is resolved with patient is reporting occasions of nausea (? Gastroparesis) Current Visit: Yes (3) UTI (urinary tract infection) Status: Acute Assessment and plan: Repeat UA is clean. Discontinue aztreonam and metronidazole, the latter being used for coverage of the above mentioned colitis. CT scan Current Visit: Yes (4) Nystagmus Status: Acute Assessment and plan: This is a lot better now. Received IV thiamine Current Visit: Yes Hospitalist: Subjective Interval history: Mrs. Marrufo has been seen interviewed and examined chart has been reviewed. She is still complaining of some mild nausea in the lower abdominal pain. Stool assessment for pathogens was negative including bacterial cultures for Yersinia and Campylobacter. Ova I am concerned about possibility of sensitivity of cultures as regard to Campylobacter which clinically should be considered in the differential diagnosis of this clinical syndrome. Patient presented to the hospital with a rather protracted episode of diarrhea abdominal pain nausea and vomiting and cramping. So far the only thing found of concern is a possibly resolving colitis involving the right part of the colon. Colonoscopy done yesterday. Upper GI endoscopy did not reveal much. She still has significant discomfort with palpation over the abdomen suggesting possibility of mesenteritis a common finding with Campylobacter. As such I discussed with the laboratory to have Campylobacter antigen sent out for assessment. I am leaning towards giving this lady azithromycin at least 4 doses 500 mg a day each. This should be taken with food. Hopefully this will improve her situation. I intend to assist the patient again tomorrow with intention to discharge Exam - Constitutional Vitals: Period Temp Pulse Resp BP Sys/Poon Pulse Ox Last 24 Hr 97.3 F-98.9 F 73-91 16-20 96-143/60-96 94-100 General appearance: normal weight - Head Head exam: Present: normocephalic, atraumatic - Eye Eye exam: Present: EOMI Pupils: Present: ARIANA - ENT ENT exam: Present: normal exam - Neck Neck exam: Present: normal inspection - Respiratory Respiratory exam: Present: clear to auscultation bilaterally - Cardiovascular Cardiovascular exam: Present: regular rate and rhythm - GI/Abdominal GI/Abdominal exam: Present: normal bowel sounds, soft, other (Very tender to palpation diffusely despite being soft with positive bowel sounds) - Extremities Exam Extremities exam: Present: full ROM - Neurological Exam Neurological exam: Present: alert, oriented X3, CN II-XII intact - Psychiatric Psychiatric exam: Present: normal affect, normal mood - Skin Skin exam: Present: normal color, warm, dry Results - Labs CBC & BMP: 02/18/17 06:32 02/18/17 06:32 Lab Results: I have reviewed the past 24 hour labs
[2017-02-21] MEDS: SODIUM CHLOR 0.9% KCL 20 MEQ 20 MEQ/1,000 ML BAG IV SCH ×3 (03:13→12:43)
[2017-02-21] MEDS: PROMETHAZINE 25 MG TABLET PO SCH ×3 (03:13→18:00)
[2017-02-21] MEDS: PANTOPRAZOLE 40 MG TABLET PO SCH (09:35)
[2017-02-21] MEDS: THIAMINE 200 MG/2 ML VIAL IV SCH (09:36)
--- NOTE | 2017-02-21 10:22 | Discharge Summary ---
<Robbin Dennis - Last Filed: 02/21/17 10:18> Hospital Course - Hospital Course Hospital Course: This is a very pleasant 56-year-old female that presented to the ED at [facility] on morning of February 10, 2017 for the evaluation of nausea , vomiting, diarrhea. Patient has medical history significant for hypertension , depression, gastroesophageal reflux disease, and dysphasia. Patient has surgical history significant for hysterectomy and esophageal dilation. Patient reported the onset of symptoms 1 month prior to presentation. She reported that the above symptoms started gradually and in increased in frequency in recent weeks. She reported that she has had weight loss and a loss of appetite. She states that she has not been able to "keep anything down" and becomes dizzy when she ambulates. The patient reports an extensive gastroenterology history and reports that she has seen a cotton stripper in the past and has required esophageal dilation. Her symptoms became severe this morning she decided to present to the ED for further evaluation. The patient was seen and assessed at the time of ED presentation. The patient was noted to be vomiting during the triage interview. Labs were obtained; complete blood count reported white blood cell count 9.3, hemoglobin 13.1, hematocrit 36.2, and platelet count of 233. Complete metabolic profile reported sodium at 135, potassium at 2.8, chloride 89, carbon dioxide 30, anion gap 18.8, BUN 18, creatinine 0.90, calcium 10.0, total bilirubin 1.20, AST 27, ALT 16, alkaline phosphatase 71, lipase 100. Urinalysis reported a small amount of bilirubin, urobilinogen 4.0, and a small amount of leukocytes. CT abdomen and pelvis reported fatty infiltration of the liver with cardiac fat pads and minimal atelectasis, diverticulosis of the colon with possible thickening of the wall of the right colon which could be related to colitis or inflammatory bowel disease, and chronic appearing L4 compression fracture with degenerative changes. The patient was subsequently admitted to the hospitalist service for continuation of care. Empiric antibiotic coverage, gentle rehydration, protein pump inhibitors, DVT prophylaxis, and bowel rest was initiated. A gastroenterology consultation was requested. On February 12, 2017 the patient underwent esophagogastroduodenoscopy with cold biopsy under the direction of Dr. Wilner Dent; which was significant for esophagitis in the distal esophagus , and a 2 cm hiatal hernia with a small amount of fluid was noted in the stomach as well as mild nonerosive gastritis. On February 13, 2017, the patient underwent a nuclear medicine gastric emptying study which was noted to be grossly normal. 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 No evidence of granulomas, parasite, tumor, or celiac disease.#2 SPEEDY BIOPSIES: Chronic gastritis, focally active. H. 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 On February 17, 2017; the patient was noted to be experiencing nystagmus and verbalize complaints of bilateral leg weakness. A neurology consultation was requested. On February 18, 2017, the patient underwent MRI of the brain with and without contrast which was essentially unremarkable. The patient's condition slowly improved. The patient's condition is stable. She has not experienced any significant overnight events. Today, we feel that she is indeed appropriate for discharge to follow-up with her primary care physician, cotton stripper, and neurologist as indicated. Diagnosis - Discharge Diagnosis (1) Colitis Status: Acute (2) Nausea and vomiting in adult patient Status: Acute (3) UTI (urinary tract infection) Status: Acute (4) Nystagmus Status: Acute Discharge Plan - Discharge Data Disposition: Home Health Service Condition at Discharge: Stable Discharge Diet: heart healthy Activity: resume usual activities as tolerated Weight Bearing at Discharge: weight bear as tolerated Driving: not until seen by doctor Contact your physician if you experience:: fever over 101, Nausea/Vomiting, Shortness of breath, pain uncontrolled by pain medications - Discharge Medications New Multivitamin [Multivitamins] 1 each PO DAILY #30 tablet MDD 1 tablet Pantoprazole Tab [Protonix Tab] 40 mg PO BID #60 tablet Thiamine Tab [Vitamin B1 Tab] 100 mg PO DAILY #30 tablet Continue Montelukast Sodium 10 mg PO BEDTIME Lisinopril 2.5 mg PO DAILY Pravastatin Sodium 40 mg PO BEDTIME Donepezil HCl 10 mg PO BEDTIME Atomoxetine HCl [Strattera] 80 mg PO DAILY Omeprazole 40 mg PO BID Fluticasone 50 Mcg Nasal [place] [Flonase Nasal [place]] 2 spray BOTH NARES DAILY PRN PRN Reason: Congestion Letha-3/Dha/Epa/Fish Oil [Fish Oil 1,000 mg Softgel] 1 each PO DAILY Quetiapine Fumarate 400 mg PO BEDTIME Estradiol Tab [Estrace Tab] 2 mg PO DAILY Duloxetine HCl [Duloxetine] 60 mg PO BID Discontinued Diclofenac 1% Gel [Voltaren 1% Gel] 1 applic TOP QID PRN PRN Reason: Pain - Follow Up or Referral - Forms/Instructions Instructions: Gastritis (DC), Urinary Tract Infection in Women (DC) Exam - Constitutional Vitals: Period Temp Pulse Resp BP Sys/Poon Pulse Ox Last 24 Hr 97.8 F-98.6 F 79-109 18-20 92-123/61-96 95-99 General appearance: normal weight, no acute distress, other (Forgetful) - Head Head exam: Present: normocephalic, atraumatic - Eye Eye exam: Present: EOMI Pupils: Present: ARIANA - ENT ENT exam: Present: normal exam, normal oropharynx - Neck Neck exam: Present: normal inspection - Respiratory Respiratory exam: Present: clear to auscultation bilaterally - Cardiovascular Cardiovascular exam: Present: regular rate and rhythm - Extremities Exam Extremities exam: Present: full ROM - Neurological Exam Neurological exam: Present: alert, CN II-XII intact, other (Not oriented to time oriented to person) Discharge Results Procedures and tests throughout hospitalization: Pending Orders 02/16/17 16:56 Blood Culture Routine 02/20/17 08:40 Stool Culture/Campy Routine Labs on day of discharge: Preliminary micro results at discharge 02/16/17 16:56 Blood Culture - Preliminary Blood No growth at 3 days 02/16/17 16:56 Blood Culture - Preliminary Blood No growth at 3 days DS: Provider Date of admission: 02/10/17 12:06 Primary care physician: . No PCP Attending physician on admission: Jeffery Gonzalez MD Consults: 02/10/17 12:07 Consult to Physician [CONS] Routine Comment: colitis & nausea and vomiting Consulting Provider: Wilner Dent When should Consulting Provider be notified: Now Consult to Specialist Group: Gastroenterology Person Notified: Dr. Dent Date Notified: 02/10/17 Time Notified: 14:50 Consult Notification Comment: Will see patient tomorrow 02/10/17 14:16 Consult to Dietitian [CONS] Routine Reason for Dietitian: Dietary Consult Consult Comment: pt lost 20 pounds in the last month 02/11/17 06:52 Consult to Anesthesiology [CONS] Routine Consulting Provider: Reason for Anesthesiology: Pre-op Clearance 02/16/17 15:30 Consult to Physician [CONS] Routine Comment: dizziness, nystagmus Consulting Provider: Ambrose Ramos When should Consulting Provider be notified: Now Person Notified: Dr. Ramos Date Notified: 02/16/17 Time Notified: 15:52 Consult Notification Comment: states will either see pt this afternoon or in AM 02/21/17 09:32 Consult to Case Mgmt/Social Srvs [CONS] Routine Reason for Case Mgmt/Social Srvs: Home Health Discharging clinician: Robbin Dennis MD <Sirisha Ogdenda - Last Filed: 02/21/17 11:05> Diagnosis - Discharge Diagnosis (1) Colitis Status: Acute (2) Hypokalemia Status: Acute
[2017-02-21 11:52] VITALS: BP 122/72
== END 2017-02-21 17:30 | disposition home health service (06) | DRG 249 ==
LOC: N.ED 07:41 → N.EDINP 12:06 → SUATTDRO 12:06 → N.2E 13:22
PROVIDERS: ADMIT Internal Medicine Geriatric Medicine; ATTEND Internal Medicine Infectious Disease

== ENCOUNTER 2017-08-03 17:05 | Inpatient (IN) ==
[2017-08-03 18:18] LABS: Ammonia < 10 UMOL/L (11-32)
[2017-08-03 18:23] LABS: Alanine Aminotransferase 13 U/L (13-56); Albumin 3.6 G/DL (3.4-5.0); Alkaline Phosphatase 83 U/L (45-117); Aspartate Amino Transferase 29 U/L (0-37); Blood Urea Nitrogen 15 MG/DL (7-18); Calcium 9.5 MG/DL (8.5-10.1); Glucose 114 MG/DL (74-106); Osmolality,Calculated 271.1 MOS/KG (273-304); Potassium 2.7 MMOL/L (3.5-5.1); Sodium 135 MMOL/L (136-145); Total Protein 8.6 G/DL (6.4-8.3)
[2017-08-03 18:27] LABS: Barbiturates Screen,Urine Negative (Negative); Benzodiazepines Screen,Urine Negative (Negative); Cannabinoid Screen,Urine Negative (Negative); Opiate Screen,Urine Negative (Negative); Phencyclidine Screen,Urine Negative (Negative)
[2017-08-03] MEDS ORDERED: NALOXONE 0.4 MG/ML VIAL IV STA (18:28)
[2017-08-03] MEDS ORDERED: FLUMAZENIL 1 MG/10 ML VIAL IV PRN (18:28)
[2017-08-03] MEDS ORDERED: SODIUM CHLORIDE 0.9% 1,000 ML IV STA (18:28)
[2017-08-03] MEDS ORDERED: THIAMINE 200 MG/2 ML VIAL IV STA (18:31)
[2017-08-03 18:35] LABS: Lactic Acid 2.8 MMOL/L (0.4-2.0)
[2017-08-03 18:42] LABS: PT Patient Result 10.6 SECS
[2017-08-03 18:59] LABS: Basophils % 0.4 % (0.0-0.8); Eosinophils % 0.1 % (0.00-10.9); Hematocrit 32.5 VOL% (35.7-47.0); Hemoglobin 11.5 GM/DL (12.0-16.0); Immature Granulocytes % 0.5 %; Immature Granulocytes Absolute 0.05 #; Lymphocytes # 1.7 10*3/uL (1.4-4.0); Lymphocytes % 17.1 % (21.3-54.2); Mean Corpuscular HGB Conc 35.4 GM/DL (32-36); Mean Corpuscular Hemoglobin 36 PG (27-34); Mean Corpuscular Volume 100.3 FL (87-102); Mean Platelet Volume 11.6 FL (9.6-12.0); Monocytes # 0.7 10*3/uL (0.11-0.8); Monocytes % 7.4 % (1.7-12.7); Neutrophils # 7.3 10*3/uL (1.4-7.4); Neutrophils % 74.5 % (38.7-73.9); Platelet Count 229 T/CUMM (130-400); Red Blood Count 3.24 MC/CUMM (3.8-5.5); Red Cell Distribution Width 15.4 % (9.3-17.3); White Blood Count 9.8 T/CUMM (4-12)
[2017-08-03] MEDS ORDERED: THIAMINE 200 MG/2 ML VIAL ONE (19:04)
[2017-08-03 19:21] LABS: Bacteria,Urine Many /HPF (Few); Bilirubin,Urine Negative (Negative); Blood, Urine Small mg/dL (Negative); Glucose,Urine (UA) Negative (Negative); Ketones,Urine 5 mg/dL (Negative); Mucus,Urine Few /LPF (Occasional); Nitrite,Urine Negative (Negative); Protein,Urine 30 MG/DL; Squamous Epithelial Cell,Urine Occasional /HPF (0-10); Urine Color Amber (Yellow); Urine Specific Gravity 1.012 (1.001-1.035); WBC,Urine 815 /HPF (0-6)
[2017-08-03 19:24] LABS: Apearance,Urine CLOUDY (Clear)
[2017-08-03] MEDS ORDERED: cefTRIAXone 1,000 MG in SODIUM CHLORIDE 0.9% 100 ML IV STA (19:57)
[2017-08-03] MEDS ORDERED: cefTRIAXone 1,000 MG VIAL ONE (20:24)
[2017-08-03] MEDS ORDERED: LORazepam 2 MG/1 ML VIAL IV PRN (23:14)
[2017-08-04] MEDS: SODIUM CHLOR 0.9% KCL 40 MEQ 40 MEQ/1,000 ML BAG IV SCH ×2 (02:33→15:35)
[2017-08-04 03:06] LABS: Basophils % 0.3 % (0.0-0.8); Eosinophils % 0.2 % (0.00-10.9); Hematocrit 31.6 VOL% (35.7-47.0); Hemoglobin 11.2 GM/DL (12.0-16.0); Immature Granulocytes % 0.4 %; Immature Granulocytes Absolute 0.05 #; Lymphocytes # 2.8 10*3/uL (1.4-4.0); Lymphocytes % 23.3 % (21.3-54.2); Mean Corpuscular HGB Conc 35.4 GM/DL (32-36); Mean Corpuscular Hemoglobin 35 PG (27-34); Mean Platelet Volume 11.2 FL (9.6-12.0); Monocytes # 1.4 10*3/uL (0.11-0.8); Monocytes % 11.3 % (1.7-12.7); Neutrophils # 7.8 10*3/uL (1.4-7.4); Neutrophils % 64.5 % (38.7-73.9); Platelet Count 193 T/CUMM (130-400); Red Blood Count 3.16 MC/CUMM (3.8-5.5); Red Cell Distribution Width 15.5 % (9.3-17.3)
[2017-08-04 03:28] LABS: Calcium 9.1 MG/DL (8.5-10.1); Osmolality,Calculated 275.7 MOS/KG (273-304)
[2017-08-04 03:35] LABS: Potassium 2.4 MMOL/L (3.5-5.1)
[2017-08-04] MEDS: POTASSIUM CHLORIDE 20 MEQ TABLET PO SCH ×2 (11:34→21:12)
[2017-08-04] MEDS: cefTRIAXone 1,000 MG in SYRINGE 1 EACH IV SCH (18:34)
[2017-08-05 06:10] LABS: Basophils % 0.4 % (0.0-0.8); Eosinophils # 0.1 10*3/uL (0.0-0.87); Eosinophils % 1.1 % (0.00-10.9); Hematocrit 30.4 VOL% (35.7-47.0); Hemoglobin 10.5 GM/DL (12.0-16.0); Immature Granulocytes % 0.3 %; Immature Granulocytes Absolute 0.02 #; Lymphocytes % 40.1 % (21.3-54.2); Mean Corpuscular HGB Conc 34.5 GM/DL (32-36); Mean Corpuscular Hemoglobin 35 PG (27-34); Mean Platelet Volume 11.3 FL (9.6-12.0); Monocytes # 0.4 10*3/uL (0.11-0.8); Monocytes % 5.5 % (1.7-12.7); Neutrophils # 3.9 10*3/uL (1.4-7.4); Neutrophils % 52.6 % (38.7-73.9); Platelet Count 182 T/CUMM (130-400); Red Blood Count 2.98 MC/CUMM (3.8-5.5); Red Cell Distribution Width 15.7 % (9.3-17.3); White Blood Count 7.4 T/CUMM (4-12)
[2017-08-05] MEDS: SODIUM CHLOR 0.9% KCL 40 MEQ 40 MEQ/1,000 ML BAG IV SCH (06:18)
[2017-08-05 06:31] LABS: Calcium 8.4 MG/DL (8.5-10.1); Magnesium 1.5 MG/DL (1.8-2.4); Osmolality,Calculated 275.7 MOS/KG (273-304)
[2017-08-05 06:44] LABS: Folate 2.7 NG/ML (5.4-24.0)
[2017-08-05] MEDS: POTASSIUM CHLORIDE 20 MEQ TABLET PO SCH ×2 (09:07→22:55)
[2017-08-05] MEDS: MULTIVITAMIN (CENTRUM) TABLET PO SCH (09:07)
[2017-08-05] MEDS ORDERED: MAGNESIUM SULF RIDER 4 GM in PREMIX 1 EACH IV ONE (10:30)
[2017-08-05] MEDS: cefTRIAXone 1,000 MG in SYRINGE 1 EACH IV SCH (13:59)
[2017-08-05] MEDS ORDERED: DONEPEZIL 10 MG TABLET PO SCH (21:00)
[2017-08-05] MEDS ORDERED: QUEtiapine 100 MG TABLET PO SCH (21:00)
[2017-08-05] MEDS ORDERED: MONTELUKAST 10 MG TABLET PO SCH (21:00)
[2017-08-06] MEDS ORDERED: SODIUM CHLORIDE 0.45% 1,000 ML IV SCH (07:00)
[2017-08-06] MEDS ORDERED: MAGNESIUM SULF RIDER 4 GM in PREMIX 1 EACH IV ONE (08:00)
[2017-08-06] MEDS ORDERED: FOLIC ACID 1 MG TABLET PO SCH (09:00)
[2017-08-06] MEDS ORDERED: OMEGA 3 ACID ETHYL ESTERS 1 GM CAPSULE PO SCH (09:00)
[2017-08-06] MEDS: POTASSIUM CHLORIDE 20 MEQ TABLET PO SCH (09:31)
[2017-08-06] MEDS: MULTIVITAMIN (CENTRUM) TABLET PO SCH (09:31)
[2017-08-06] MEDS: cefTRIAXone 1,000 MG in SYRINGE 1 EACH IV SCH (09:32)
[2017-08-06 11:53] VITALS: BP 115/67
== END 2017-08-06 16:48 | disposition home health service (06) | DRG 463 ==
LOC: EDBD → EDUNIT# → N.ED 17:05 → SUATTDRO 20:33 → N.EDINP 20:33 → N.2E 22:41
PROVIDERS: ADMIT Internal Medicine Nephrology; ATTEND Internal Medicine

== ENCOUNTER 2018-01-25 11:57 | Inpatient (IN) ==
[2018-01-25] MEDS ORDERED: SODIUM CHLORIDE 0.9% 2,000 ML IV STA (12:30)
[2018-01-25 14:16] LABS: Basophils % 0.2 % (0.0-0.8); Eosinophils % 0.1 % (0.00-10.9); Hematocrit 30.9 VOL% (35.7-47.0); Hemoglobin 10.4 GM/DL (12.0-16.0); Immature Granulocytes % 0.5 %; Immature Granulocytes Absolute 0.06 #; Lymphocytes # 2.1 10*3/uL (1.4-4.0); Lymphocytes % 19.3 % (21.3-54.2); Mean Corpuscular HGB Conc 33.7 GM/DL (32-36); Mean Corpuscular Hemoglobin 36 PG (27-34); Mean Corpuscular Volume 107.3 FL (87-102); Mean Platelet Volume 10.5 FL (9.6-12.0); Monocytes # 0.7 10*3/uL (0.11-0.8); Monocytes % 6.5 % (1.7-12.7); Neutrophils # 8.1 10*3/uL (1.4-7.4); Neutrophils % 73.4 % (38.7-73.9); Platelet Count 306 T/CUMM (130-400); Red Blood Count 2.88 MC/CUMM (3.8-5.5); Red Cell Distribution Width 16.3 % (9.3-17.3)
[2018-01-25 14:29] LABS: Barbiturates Screen,Urine Negative (Negative); Benzodiazepines Screen,Urine Negative (Negative); Cannabinoid Screen,Urine Negative (Negative); Opiate Screen,Urine Negative (Negative); Phencyclidine Screen,Urine Negative (Negative)
[2018-01-25 14:30] LABS: Apearance,Urine CLEAR (Clear); Blood, Urine Negative (Negative); Glucose,Urine (UA) Negative (Negative); Ketones,Urine 5 mg/dL (Negative); Mucus,Urine Occasional /LPF (Occasional); Nitrite,Urine Negative (Negative); Protein,Urine Negative; RBC,Urine 1 /HPF (0-4); Squamous Epithelial Cell,Urine Occasional /HPF (0-10); Urine Color Amber (Yellow); Urine Specific Gravity 1.014 (1.001-1.035); WBC,Urine 3 /HPF (0-6)
[2018-01-25 14:37] LABS: Alanine Aminotransferase 38 U/L (13-56); Albumin 3.6 G/DL (3.4-5.0); Alkaline Phosphatase 74 U/L (45-117); Aspartate Amino Transferase 162 U/L (0-37); Blood Urea Nitrogen 20 MG/DL (7-18); Calcium 9.5 MG/DL (8.5-10.1); Glucose 114 MG/DL (74-106); Osmolality,Calculated 302.9 MOS/KG (273-304); Potassium 2.9 MMOL/L (3.5-5.1); Sodium 151 MMOL/L (136-145); Total Protein 8.2 G/DL (6.4-8.3); Troponin I Only < 0.015 NG/ML (0.00-0.045)
[2018-01-25 14:40] LABS: Lactic Acid 2.4 MMOL/L (0.4-2.0)
[2018-01-25] MEDS ORDERED: POTASSIUM CHLORIDE 20 MEQ TABLET PO STA (14:54)
[2018-01-25 14:55] LABS: Bilirubin,Urine Small mg/dL (Negative)
[2018-01-25] MEDS ORDERED: SODIUM CHLOR 0.9% KCL 40 MEQ 40 MEQ/1,000 ML BAG IV SCH (15:00)
[2018-01-25] MEDS ORDERED: SODIUM CHLOR 0.9% KCL 40 MEQ 40 MEQ/1,000 ML BAG IV STA (15:13)
[2018-01-25] MEDS ORDERED: ONDANSETRON 4 MG/2 ML VIAL IV PRN (17:50)
[2018-01-25] MEDS ORDERED: FLUTICASONE 50 MCG NASAL SPRAY 16 GM BOTTLE BOTH NARES PRN (17:52)
[2018-01-25] MEDS ORDERED: SENNA 8.6 MG TABLET PO PRN (17:52)
[2018-01-25] MEDS ORDERED: THIAMINE 200 MG/2 ML VIAL IV STA (17:53)
[2018-01-25 19:34] LABS: Lactic Acid 4.4 MMOL/L (0.4-2.0)
[2018-01-25] MEDS: POTASSIUM CHLORIDE INJ 20 MEQ, MAGNESIUM SULF INJ 2 GM in SODIUM CHLORIDE 0.45% 1,000 ML IV SCH (20:29)
[2018-01-25] MEDS: PRAVASTATIN 40 MG TABLET PO SCH (21:25)
[2018-01-25] MEDS: PANTOPRAZOLE 40 MG TABLET PO SCH (21:25)
[2018-01-25] MEDS: MONTELUKAST 10 MG TABLET PO SCH (21:25)
[2018-01-25] MEDS: MEMANTINE 5 MG TABLET PO SCH (21:26)
[2018-01-25] MEDS: ENOXAPARIN 40 MG/0.4 ML SYRINGE SUBCUT SCH ×2 (21:26→21:40)
[2018-01-25] MEDS: OLOPATADINE 0.1% OPH SOLN 5 ML BOTTLE BOTH EYES SCH (21:40)
[2018-01-26 05:56] LABS: Basophils % 0.1 % (0.0-0.8); Eosinophils # 0.1 10*3/uL (0.0-0.87); Eosinophils % 0.4 % (0.00-10.9); Hematocrit 24.3 VOL% (35.7-47.0); Hemoglobin 8.3 GM/DL (12.0-16.0); Immature Granulocytes % 0.9 %; Immature Granulocytes Absolute 0.13 #; Lymphocytes # 2.2 10*3/uL (1.4-4.0); Lymphocytes % 14.6 % (21.3-54.2); Mean Corpuscular HGB Conc 34.2 GM/DL (32-36); Mean Corpuscular Hemoglobin 36 PG (27-34); Mean Corpuscular Volume 105.2 FL (87-102); Mean Platelet Volume 10.5 FL (9.6-12.0); Monocytes # 0.9 10*3/uL (0.11-0.8); Neutrophils # 11.9 10*3/uL (1.4-7.4); Platelet Count 257 T/CUMM (130-400); Red Blood Count 2.31 MC/CUMM (3.8-5.5); Red Cell Distribution Width 16.3 % (9.3-17.3); White Blood Count 15.2 T/CUMM (4-12)
[2018-01-26 06:23] LABS: Albumin 2.6 G/DL (3.4-5.0); Bilirubin,Total 1.5 MG/DL (0.2-1.0); Calcium 8.5 MG/DL (8.5-10.1); Potassium 3.3 MMOL/L (3.5-5.1); Total Protein 6.4 G/DL (6.4-8.3)
[2018-01-26] MEDS ORDERED: POTASSIUM CHLORIDE RIDER 10 MEQ in PREMIX 1 EACH IV PRN (07:53)
[2018-01-26] MEDS: OLOPATADINE 0.1% OPH SOLN 5 ML BOTTLE BOTH EYES SCH ×2 (09:22→20:23)
[2018-01-26] MEDS: POTASSIUM CHLORIDE 20 MEQ TABLET PO PRN (09:22)
[2018-01-26] MEDS: PANTOPRAZOLE 40 MG TABLET PO SCH ×2 (09:22→20:23)
[2018-01-26] MEDS: LISINOPRIL 2.5 MG TABLET PO SCH (09:22)
[2018-01-26] MEDS: MEMANTINE 5 MG TABLET PO SCH ×2 (09:22→20:23)
[2018-01-26] MEDS: ASPIRIN EC 81 MG TABLET PO SCH (09:22)
[2018-01-26] MEDS: MULTIVITAMIN (BEROCCA) TABLET PO SCH (09:22)
[2018-01-26] MEDS: THIAMINE 200 MG/2 ML VIAL IV SCH (09:23)
[2018-01-26] MEDS: POTASSIUM CHLORIDE 10 MEQ TABLET PO SCH (09:25)
[2018-01-26] MEDS ORDERED: TUBERCULIN SKIN TEST 0.1 ML SYRINGE INTRADERM ONE (10:01)
[2018-01-26] MEDS: DEXTROSE 5% NACL 0.45% 1,000 ML IV SCH (11:18)
[2018-01-26] MEDS: POTASSIUM CHLORIDE INJ 20 MEQ, MAGNESIUM SULF INJ 2 GM in SODIUM CHLORIDE 0.45% 1,000 ML IV SCH (12:09)
[2018-01-26] MEDS: MONTELUKAST 10 MG TABLET PO SCH (20:23)
[2018-01-26] MEDS: ENOXAPARIN 40 MG/0.4 ML SYRINGE SUBCUT SCH (20:23)
[2018-01-26] MEDS: PRAVASTATIN 40 MG TABLET PO SCH (20:23)
[2018-01-27] MEDS: DEXTROSE 5% NACL 0.45% 1,000 ML IV SCH ×2 (01:05→16:15)
[2018-01-27 04:45] LABS: Basophils % 0.2 % (0.0-0.8); Eosinophils # 0.1 10*3/uL (0.0-0.87); Eosinophils % 0.5 % (0.00-10.9); Hematocrit 24.7 VOL% (35.7-47.0); Hemoglobin 8.5 GM/DL (12.0-16.0); Immature Granulocytes % 0.6 %; Immature Granulocytes Absolute 0.06 #; Lymphocytes # 2.8 10*3/uL (1.4-4.0); Lymphocytes % 29.3 % (21.3-54.2); Mean Corpuscular HGB Conc 34.4 GM/DL (32-36); Mean Corpuscular Hemoglobin 37 PG (27-34); Mean Corpuscular Volume 106.9 FL (87-102); Mean Platelet Volume 11.2 FL (9.6-12.0); Monocytes # 0.5 10*3/uL (0.11-0.8); Monocytes % 5.6 % (1.7-12.7); Neutrophils # 6.1 10*3/uL (1.4-7.4); Neutrophils % 63.8 % (38.7-73.9); Platelet Count 221 T/CUMM (130-400); Red Blood Count 2.31 MC/CUMM (3.8-5.5); White Blood Count 9.5 T/CUMM (4-12)
[2018-01-27 05:11] LABS: Albumin 2.5 G/DL (3.4-5.0); Bilirubin,Total 1.2 MG/DL (0.2-1.0); Calcium 8.6 MG/DL (8.5-10.1); Osmolality,Calculated 284.7 MOS/KG (273-304); Potassium 3.3 MMOL/L (3.5-5.1); Risk Ratio 7.4; Total Protein 5.9 G/DL (6.4-8.3); VLDL CHOLESTEROL 32.2 MG/DL
[2018-01-27 06:01] LABS: Hepatitis A Ab IgM Quant 0.18 Index; Hepatitis A Ab IgM Result Negative (Negative); Hepatitis B Core IgM Quant 0.15 Index; Hepatitis B Core IgM Result Negative (Negative); Hepatitis B Surface Ag Quant < 0.10 Index; Hepatitis B Surface Ag Result Negative (Negative); Hepatitis C Virus Ab Quant 0.14 Index; Hepatitis C Virus Ab Result Negative (Negative)
[2018-01-27] MEDS: ASPIRIN EC 81 MG TABLET PO SCH (09:47)
[2018-01-27] MEDS: POTASSIUM CHLORIDE 20 MEQ TABLET PO PRN ×3 (09:47→14:21)
[2018-01-27] MEDS: PANTOPRAZOLE 40 MG TABLET PO SCH ×2 (09:47→21:44)
[2018-01-27] MEDS: THIAMINE 200 MG/2 ML VIAL IV SCH (09:47)
[2018-01-27] MEDS: OLOPATADINE 0.1% OPH SOLN 5 ML BOTTLE BOTH EYES SCH ×2 (09:49→21:44)
[2018-01-27] MEDS: MULTIVITAMIN (BEROCCA) TABLET PO SCH (09:49)
[2018-01-27] MEDS: MEMANTINE 5 MG TABLET PO SCH ×2 (09:49→21:43)
[2018-01-27] MEDS: LISINOPRIL 2.5 MG TABLET PO SCH (09:49)
[2018-01-27] MEDS: POTASSIUM CHLORIDE 10 MEQ TABLET PO SCH (09:49)
[2018-01-27] MEDS: PRAVASTATIN 40 MG TABLET PO SCH (21:43)
[2018-01-27] MEDS: MONTELUKAST 10 MG TABLET PO SCH (21:43)
[2018-01-27] MEDS: ENOXAPARIN 40 MG/0.4 ML SYRINGE SUBCUT SCH (21:44)
[2018-01-28] MEDS: DEXTROSE 5% NACL 0.45% 1,000 ML IV SCH (04:53)
[2018-01-28 05:17] LABS: Basophils % 0.5 % (0.0-0.8); Eosinophils % 0.5 % (0.00-10.9); Hematocrit 26.8 VOL% (35.7-47.0); Hemoglobin 9.3 GM/DL (12.0-16.0); Immature Granulocytes % 0.5 %; Immature Granulocytes Absolute 0.03 #; Lymphocytes # 2.2 10*3/uL (1.4-4.0); Lymphocytes % 35.1 % (21.3-54.2); Mean Corpuscular HGB Conc 34.7 GM/DL (32-36); Mean Corpuscular Hemoglobin 36 PG (27-34); Mean Corpuscular Volume 104.3 FL (87-102); Mean Platelet Volume 10.6 FL (9.6-12.0); Monocytes # 0.4 10*3/uL (0.11-0.8); Monocytes % 6.6 % (1.7-12.7); Neutrophils # 3.5 10*3/uL (1.4-7.4); Neutrophils % 56.8 % (38.7-73.9); Platelet Count 251 T/CUMM (130-400); Red Blood Count 2.57 MC/CUMM (3.8-5.5); Red Cell Distribution Width 15.9 % (9.3-17.3); White Blood Count 6.2 T/CUMM (4-12)
[2018-01-28 05:43] LABS: Calcium 8.9 MG/DL (8.5-10.1); Potassium 4.2 MMOL/L (3.5-5.1)
[2018-01-28] MEDS: PANTOPRAZOLE 40 MG TABLET PO SCH ×2 (08:38→21:20)
[2018-01-28] MEDS: MEMANTINE 5 MG TABLET PO SCH ×2 (08:38→21:20)
[2018-01-28] MEDS: ASPIRIN EC 81 MG TABLET PO SCH (08:38)
[2018-01-28] MEDS: LISINOPRIL 2.5 MG TABLET PO SCH (08:38)
[2018-01-28] MEDS: MULTIVITAMIN (BEROCCA) TABLET PO SCH (08:38)
[2018-01-28] MEDS: POTASSIUM CHLORIDE 10 MEQ TABLET PO SCH (08:38)
[2018-01-28] MEDS: THIAMINE 200 MG/2 ML VIAL IV SCH (08:38)
[2018-01-28] MEDS: OLOPATADINE 0.1% OPH SOLN 5 ML BOTTLE BOTH EYES SCH ×2 (08:39→21:21)
[2018-01-28] MEDS: ENOXAPARIN 40 MG/0.4 ML SYRINGE SUBCUT SCH (21:19)
[2018-01-28] MEDS: MONTELUKAST 10 MG TABLET PO SCH (21:20)
[2018-01-28] MEDS: PRAVASTATIN 40 MG TABLET PO SCH (21:20)
[2018-01-29 06:10] LABS: Albumin 2.7 G/DL (3.4-5.0); Bilirubin,Total 1.2 MG/DL (0.2-1.0); Calcium 8.8 MG/DL (8.5-10.1); Potassium 4.2 MMOL/L (3.5-5.1); Total Protein 6.1 G/DL (6.4-8.3)
[2018-01-29] MEDS: ASPIRIN EC 81 MG TABLET PO SCH (09:08)
[2018-01-29] MEDS: POTASSIUM CHLORIDE 10 MEQ TABLET PO SCH (09:08)
[2018-01-29] MEDS: MULTIVITAMIN (BEROCCA) TABLET PO SCH (09:08)
[2018-01-29] MEDS: MEMANTINE 5 MG TABLET PO SCH ×2 (09:08→21:21)
[2018-01-29] MEDS: LISINOPRIL 2.5 MG TABLET PO SCH (09:08)
[2018-01-29] MEDS: PANTOPRAZOLE 40 MG TABLET PO SCH ×2 (09:08→21:21)
[2018-01-29] MEDS: OLOPATADINE 0.1% OPH SOLN 5 ML BOTTLE BOTH EYES SCH ×3 (09:33→21:23)
[2018-01-29] MEDS: THIAMINE 200 MG/2 ML VIAL IV SCH (10:36)
[2018-01-29] MEDS: DEXTROSE 5% NACL 0.45% 1,000 ML IV SCH (15:16)
[2018-01-29] MEDS: ENOXAPARIN 40 MG/0.4 ML SYRINGE SUBCUT SCH ×2 (21:21→21:23)
[2018-01-29] MEDS: PRAVASTATIN 40 MG TABLET PO SCH (21:21)
[2018-01-29] MEDS: THIAMINE 100 MG TABLET PO SCH (21:21)
[2018-01-29] MEDS: MONTELUKAST 10 MG TABLET PO SCH (21:21)
[2018-01-30 06:41] LABS: Calcium 8.7 MG/DL (8.5-10.1); Potassium 4.3 MMOL/L (3.5-5.1)
[2018-01-30] MEDS ORDERED: MAGNESIUM SULF RIDER 2 GM in PREMIX 1 EACH IV PRN (07:19)
[2018-01-30] MEDS ORDERED: MAGNESIUM SULF RIDER 4 GM in PREMIX 1 EACH IV PRN (07:19)
[2018-01-30] MEDS: MAGNESIUM OXIDE 400 MG TABLET PO SCH ×2 (08:37→22:12)
[2018-01-30] MEDS: OLOPATADINE 0.1% OPH SOLN 5 ML BOTTLE BOTH EYES SCH ×2 (08:37→22:12)
[2018-01-30] MEDS: LISINOPRIL 2.5 MG TABLET PO SCH (08:37)
[2018-01-30] MEDS: THIAMINE 100 MG TABLET PO SCH ×2 (08:37→22:12)
[2018-01-30] MEDS: MULTIVITAMIN (BEROCCA) TABLET PO SCH (08:37)
[2018-01-30] MEDS: PANTOPRAZOLE 40 MG TABLET PO SCH ×2 (08:37→22:12)
[2018-01-30] MEDS: POTASSIUM CHLORIDE 10 MEQ TABLET PO SCH (08:37)
[2018-01-30] MEDS: ASPIRIN EC 81 MG TABLET PO SCH (08:37)
[2018-01-30] MEDS: MEMANTINE 5 MG TABLET PO SCH ×2 (08:37→22:12)
[2018-01-30] MEDS: ENOXAPARIN 40 MG/0.4 ML SYRINGE SUBCUT SCH (22:11)
[2018-01-30] MEDS: MONTELUKAST 10 MG TABLET PO SCH (22:12)
[2018-01-30] MEDS: PRAVASTATIN 40 MG TABLET PO SCH (22:12)
[2018-01-31 06:43] LABS: Calcium 9.2 MG/DL (8.5-10.1); Osmolality,Calculated 277.3 MOS/KG (273-304); Potassium 4.3 MMOL/L (3.5-5.1)
[2018-01-31] MEDS: LISINOPRIL 2.5 MG TABLET PO SCH (09:37)
[2018-01-31] MEDS: MULTIVITAMIN (BEROCCA) TABLET PO SCH (09:37)
[2018-01-31] MEDS: POTASSIUM CHLORIDE 10 MEQ TABLET PO SCH (09:37)
[2018-01-31] MEDS: MAGNESIUM OXIDE 400 MG TABLET PO SCH (09:37)
[2018-01-31] MEDS: MEMANTINE 5 MG TABLET PO SCH (09:37)
[2018-01-31] MEDS: ASPIRIN EC 81 MG TABLET PO SCH (09:37)
[2018-01-31] MEDS: PANTOPRAZOLE 40 MG TABLET PO SCH (09:37)
[2018-01-31] MEDS: THIAMINE 100 MG TABLET PO SCH (09:37)
[2018-01-31] MEDS: OLOPATADINE 0.1% OPH SOLN 5 ML BOTTLE BOTH EYES SCH (09:38)
[2018-01-31 17:00] VITALS: BP 90/64
== END 2018-01-31 19:51 | disposition home or self-care (01) | DRG 52 ==
LOC: EDUNIT# → EDBD → N.ED 11:57 → N.EDINP 17:25 → N.2E 18:31

== ENCOUNTER 2019-05-24 23:45 | Observation (INO) ==
[2019-05-25] MEDS ORDERED: ASPIRIN 325 MG TABLET PO STA (00:36)
[2019-05-25] MEDS ORDERED: ONDANSETRON 4 MG/2 ML VIAL IV STA (00:36)
[2019-05-25] MEDS ORDERED: SODIUM CHLORIDE 0.9% 1,000 ML IV STA (00:36)
[2019-05-25 01:02] LABS: Apearance,Urine CLEAR (Clear); Bacteria,Urine Few /HPF (Few); Bilirubin,Urine Negative (Negative); Blood, Urine Large mg/dL (Negative); Glucose,Urine (UA) 50 mg/dL (Negative); Ketones,Urine Negative (Negative); Mucus,Urine Occasional /LPF (Occasional); Nitrite,Urine Positive (Negative); Protein,Urine 30 MG/DL; RBC,Urine 106 /HPF (0-4); Urine Color Amber (Yellow); Urine Specific Gravity 1.015 (1.001-1.035); WBC,Urine 12 /HPF (0-6)
[2019-05-25 01:29] LABS: Basophils % 0.5 % (0.0-0.8); Eosinophils # 0.1 10*3/uL (0.0-0.87); Hematocrit 31.5 VOL% (35.7-47.0); Hemoglobin 10.7 GM/DL (12.0-16.0); Immature Granulocytes % 0.7 %; Immature Granulocytes Absolute 0.06 #; Lymphocytes # 2.4 10*3/uL (1.4-4.0); Lymphocytes % 29.3 % (21.3-54.2); Mean Corpuscular Volume 98.4 FL (87-102); Mean Platelet Volume 10.9 FL (9.6-12.0); Monocytes % 8.4 % (1.7-12.7); Neutrophils % 60.1 % (38.7-73.9); Platelet Count 172 T/CUMM (130-400); Red Cell Distribution Width 12.8 % (9.3-17.3); White Blood Count 8.1 T/CUMM (4-12)
[2019-05-25 01:31] LABS: Albumin 3.6 G/DL (3.4-5.0); Bilirubin,Total 0.4 MG/DL (0.2-1.0); Calcium 8.9 MG/DL (8.5-10.1); Osmolality,Calculated 296.4 MOS/KG (273-304); Total Protein 7.6 G/DL (6.4-8.3)
[2019-05-25] MEDS ORDERED: LEVOFLOXACIN INJ 500 MG in PREMIX 1 EACH IV STA (01:47)
[2019-05-25] MEDS ORDERED: diphenhydrAMINE CAP 25 MG CAPSULE PO PRN (02:05)
[2019-05-25] MEDS ORDERED: BISACODYL 5 MG TABLET PO PRN (02:05)
[2019-05-25] MEDS ORDERED: traZODone 50 MG TABLET PO PRN (02:05)
[2019-05-25] MEDS ORDERED: NICOTINE 21 MG/24 HR PATCH TRANSDERM PRN (02:05)
[2019-05-25] MEDS ORDERED: ACETAMINOPHEN 325 MG TABLET PO PRN (02:05)
[2019-05-25] MEDS ORDERED: guaiFENesin/DM ER 600-30 MG TABLET PO PRN (02:05)
[2019-05-25] MEDS ORDERED: ONDANSETRON 4 MG/2 ML VIAL IV PRN (02:05)
[2019-05-25] MEDS ORDERED: MORPHINE 4 MG/1 ML VIAL IV PRN (02:05)
[2019-05-25 02:40] LABS: Risk Ratio 2.86; Thyroid Stimulating Hormone 1.33 uIU/ml (0.358-3.74)
[2019-05-25] MEDS: SODIUM CHLORIDE 0.9% 1,000 ML IV SCH ×2 (04:00→11:43)
[2019-05-25 05:50] LABS: Albumin 3.5 G/DL (3.4-5.0); Bilirubin,Total 0.5 MG/DL (0.2-1.0); Calcium 8.5 MG/DL (8.5-10.1); Total Protein 7.5 G/DL (6.4-8.3)
[2019-05-25] MEDS ORDERED: PANTOPRAZOLE 40 MG TABLET PO SCH (09:00)
[2019-05-25 12:44] VITALS: BP 126/79
[2019-05-26] MEDS ORDERED: LEVOFLOXACIN INJ 250 MG in PREMIX 1 EACH IV SCH (02:30)
== END 2019-05-25 15:20 | disposition home or self-care (01) ==
LOC: EDUNIT# → N.ED 23:45 → INTOOBSV 05-25 02:06 → N.EDINP 05-25 02:06 → N.TELES 05-25 03:01
PROVIDERS: ADMIT Internal Medicine Geriatric Medicine; ATTEND Internal Medicine Geriatric Medicine